=== PATIENT | male | born 1960 | race Caucasian/White ===

== ENCOUNTER 2021-06-24 07:16 | Outpatient (CLI) | payer MEDICAID, SELFPAY ==
[2021-06-24 08:03] LABS: Absolute Lymphocyte Count 2.45 X10^3/uL (0.83-4.51); Absolute Neutrophil Count 3.9 X10^3/uL (2.0-7.7); Basophil# 0.04 X10^3/uL; Basophil% 0.6 % (0-1); Eosinophils% 1.5 % (0-5); Hematocrit 45.4 % (40-54); Hemoglobin 15.5 g/dL (13.0-16.5); Lymphocyte # 2.45 X10^3/ul (0.83-4.51); Lymphocyte % 35.6 % (19-41); Mean Corp Hgb Conc 34.1 g/dL (32-36); Mean Corpuscular Hgb 31.6 pg (27.0-32.0); Mean Corpuscular Volume 92.5 fL (80-94); Mean Platelet Vol. 10.1 fl (6.2-12.0); Monocyte# 0.41 X10^3/uL; NRBC Flagged by Analyzer 0 % (0-5); Neutrophil # 3.86 X10^3/uL (2.7-7.7); Neutrophil % 55.9 % (47-70); Platelet Count 258 K/mm3 (150-450); RBC Distribution Width CV 12.5 % (11.6-14.6); RBC Distribution Width SD 42.7 fl (35.1-43.9); Red Blood Count 4.91 M/mm3 (4.6-6.2); White Blood Count 6.9 K/mm3 (4.4-11.0)
[2021-06-24 08:47] LABS: BUN 25 mg/dL (7-18); Creatinine, Serum 1.31 mg/dL (0.70-1.30); Glucose 117 mg/dL (74-106)
[2021-06-24 08:48] LABS: AST(SGOT) 32 U/L (15-37); Alanine Aminotransfer ALT/SGPT 47 U/L (16-61); Albumin, Serum 3.9 g/dL (3.2-5.0); Alkaline Phosphatase 57 U/L (45-117); Anion Gap 5 (5-15); BUN/Creat Ratio 19.1 RATIO (10-20); Calcium,Total 9.1 mg/dL (8.5-10.1); Chloride 107 mmol/L (98-107); Cholesterol 189 mg/dL (200); EST Glomerular Filtration Rate 59 mL/min (>60); Est Glom Filt Rate - Afr Amer 71 mL/min (>60); Globulin 3.9 g/dL (2.2-4.2); High Density Lipoprotein 34 mg/dL; PSA,Total - Annual Screen 3.32 ng/mL (0.00-4.00); Potassium 4.1 mmol/L (3.5-5.1); Protein, Total 7.8 g/dL (6.4-8.2); Sodium Level 140 mmol/L (136-145); Thyroid Stim Hormone (TSH) 2.71 uIU/mL (0.358-3.74); Triglycerides 195 mg/dL; Very Low Density Lipoprotein 39 mg/dL (5-40)
[2021-06-26 16:46] LABS: Vitamin D 1,25-Dihydroxy 53.1 pg/mL (19.9-79.3)
== END 2021-06-24 23:59 | disposition home or self-care (01) ==
LOC: LAB 07:19
DX: I10 Essential (primary) hypertension (principal); E55.9 Vitamin D deficiency, unspecified; Z12.5 Encounter for screening for malignant neoplasm of prostate
CPT/HCPCS: 36415; 80053; 80061; 82652; 84153; 84443; 85025; G0103

== ENCOUNTER 2021-08-11 15:54 | Outpatient (RCR) | payer MEDICAID, SELFPAY | END 2021-08-11 19:00 | disposition home or self-care (01) | LOC: PT 15:54 | PROVIDERS: PCP Internal Medicine; Referring Provider Physician Assistant; Visit Provider Physician Assistant | DX: M75.42 Impingement syndrome of left shoulder (principal); M19.012 Primary osteoarthritis, left shoulder ==

== ENCOUNTER → 2022-01-26 | Outpatient (CLI) | payer MEDICAID, SELFPAY ==
[2022-01-26 11:08] LABS: Anion Gap 5 (5-15); BUN 22 mg/dL (7-18); BUN/Creat Ratio 17.3 RATIO (10-20); Calcium,Total 9.7 mg/dL (8.5-10.1); Chloride 107 mmol/L (98-107); Creatinine, Serum 1.27 mg/dL (0.70-1.30); EST Glomerular Filtration Rate 61 mL/min (>60); Est Glom Filt Rate - Afr Amer 74 mL/min (>60); Glucose 100 mg/dL (74-106); Potassium 3.6 mmol/L (3.5-5.1); Sodium Level 143 mmol/L (136-145)
[2022-01-26 11:21] LABS: Hemoglobin A1c 6.1 % (3.8-5.6)
== END | disposition home or self-care (01) ==
LOC: LAB 10:20
PROVIDERS: PCP Internal Medicine; Referring Provider Internal Medicine; Visit Provider Internal Medicine
DX: I10 Essential (primary) hypertension (principal)
CPT/HCPCS: 36415; 80048; 83036

== ENCOUNTER → 2022-07-21 | Outpatient (CLI) | payer OTHER, SELFPAY ==
[2022-07-21 07:24] LABS: Absolute Lymphocyte Count 2.45 X10^3/uL (0.83-4.51); Absolute Neutrophil Count 4.3 X10^3/uL (2.0-7.7); Basophil# 0.04 X10^3/uL; Basophil% 0.5 % (0-1); Eosinophil# 0.11 X10^3/uL; Eosinophils% 1.5 % (0-5); Hematocrit 44.3 % (40-54); Hemoglobin 15.1 g/dL (13.0-16.5); Lymphocyte # 2.45 X10^3/ul (0.83-4.51); Lymphocyte % 33.1 % (19-41); Mean Corp Hgb Conc 34.1 g/dL (32-36); Mean Corpuscular Hgb 31.9 pg (27.0-32.0); Mean Corpuscular Volume 93.5 fL (80-94); Mean Platelet Vol. 10.2 fl (6.2-12.0); Monocyte# 0.49 X10^3/uL; Monocyte% 6.6 % (0-10); NRBC Flagged by Analyzer 0 % (0-5); Neutrophil # 4.28 X10^3/uL (2.7-7.7); Neutrophil % 57.9 % (47-70); Platelet Count 242 K/mm3 (150-450); RBC Distribution Width CV 12.7 % (11.6-14.6); RBC Distribution Width SD 43.8 fl (35.1-43.9); Red Blood Count 4.74 M/mm3 (4.6-6.2); White Blood Count 7.4 K/mm3 (4.4-11.0)
[2022-07-21 08:07] LABS: AST(SGOT) 28 U/L (15-37); Alanine Aminotransfer ALT/SGPT 48 U/L (16-61); Albumin, Serum 3.7 g/dL (3.2-5.0); Alkaline Phosphatase 56 U/L (45-117); Anion Gap 6 (5-15); BUN 26 mg/dL (7-18); BUN/Creat Ratio 20.8 RATIO (10-20); Calcium,Total 9.2 mg/dL (8.5-10.1); Chloride 110 mmol/L (98-107); Cholesterol 195 mg/dL (200); Creatinine, Serum 1.25 mg/dL (0.70-1.30); EST Glomerular Filtration Rate 62 mL/min (>60); Est Glom Filt Rate - Afr Amer 75 mL/min (>60); Globulin 3.6 g/dL (2.2-4.2); Glucose 122 mg/dL (74-106); High Density Lipoprotein 32 mg/dL; Potassium 3.8 mmol/L (3.5-5.1); Protein, Total 7.3 g/dL (6.4-8.2); Sodium Level 141 mmol/L (136-145); Triglycerides 211 mg/dL; Very Low Density Lipoprotein 42 mg/dL (5-40)
[2022-07-21 08:37] LABS: Vitamin D,25 Hydroxy 47.2 ng/mL
== END | disposition home or self-care (01) ==
PROVIDERS: PCP Internal Medicine; Referring Provider Internal Medicine; Visit Provider Internal Medicine
DX: Z00.00 Encounter for general adult medical examination without abnormal findings (principal); I10 Essential (primary) hypertension; Z12.5 Encounter for screening for malignant neoplasm of prostate; E55.9 Vitamin D deficiency, unspecified
CPT/HCPCS: 36415; 80053; 80061; 82306; 84153; 85025; G0103

== ENCOUNTER → 2023-01-25 | Outpatient (CLI) | payer OTHER, SELFPAY ==
[2023-01-25 10:53] LABS: Anion Gap 7 (5-15); BUN 20 mg/dL (7-18); BUN/Creat Ratio 16.7 RATIO (10-20); Calcium,Total 9.1 mg/dL (8.5-10.1); Chloride 107 mmol/L (98-107); EST Glomerular Filtration Rate 65 mL/min (>60); Est Glom Filt Rate - Afr Amer 79 mL/min (>60); Glucose 179 mg/dL (74-106); PSA,Total- Diagnostic 4.97 ng/mL (0.0-4.0); Potassium 3.8 mmol/L (3.5-5.1); Sodium Level 139 mmol/L (136-145)
== END | disposition home or self-care (01) ==
LOC: LAB 09:46
PROVIDERS: PCP Internal Medicine; Referring Provider Internal Medicine; Visit Provider Internal Medicine
DX: N40.0 Benign prostatic hyperplasia without lower urinary tract symptoms (principal); I10 Essential (primary) hypertension; R79.89 Other specified abnormal findings of blood chemistry
CPT/HCPCS: 36415; 80048; 84153

== ENCOUNTER 2023-02-19 06:52 | Day surgery (SDC) | payer OTHER, SELFPAY ==
[2023-02-19] VITALS (7 sets, daily range): BP systolic 97–133; BP diastolic 76–93; PULSE 72–92; RESP 16–18; TEMP 36.1–36.9; O2SAT 87–97; BMI 35.2
--- NOTE | 2023-02-19 07:08 | PCM.HP.STD ---
[facility] - General General Date of Admission: 01/02/20 Date of Service: 02/19/23 Chief Complaint: Family history of colon cancer in his mother HPI Narrative CHI TEIXEIRA, is a 62 M who presents for screening colonoscopy today. There is a family history of colon cancer in his mother. He presents via open access. He thinks that the MiraLAX prep did not quite work as well as previous preps. No abdominal pain. No bright red blood per rectum or melena. He has had some chronic cough but that is does not inhibit his breathing ability. [facility] Medical History (Updated 02/19/23 @ 07:[address] Tobi Rob MD) Alcohol use Arthritis Cancer Family hx of colon cancer History of diverticulitis Hypertension Injury of head and neck Kidney stones Non-smoker Skin cancer Wears glasses Home Medications losartan 50 mg tablet 50 mg PO DAILY #90 tabs 07/27/22 [Rx Last Taken Unknown] cholecalciferol (vitamin D3) 50 mcg (2,000 unit) capsule 50 mcg PO DAILY 01/06/23 [History Last Taken Unknown] multivitamin 1 tab PO DAILY 01/06/23 [History Last Taken Unknown] omega-3 fatty acids-fish oil 360 mg-1,200 mg capsule (Fish Oil) 1 cap PO DAILY 01/06/23 [History Last Taken Unknown] ascorbic acid (vitamin C) 500 mg tablet (C-500) 500 mg PO DAILY 02/15/23 [History Last Taken Unknown] Allergy/AdvReac Type Severity Reaction Status Date / Time morphine AdvReac Severe Nausea Verified 02/19/23 07:08 Family History Mother Colon cancer, Onset Age: 70 Survives Surgical History (Updated 02/15/23 @ 12:15 by Gayatri Gates) History of cystoscopy Hx of appendectomy Hx of colonoscopy Hx of hernia repair Hx of repair of right rotator cuff Social History Smoking Status: Never smoker alcohol intake: current alcohol intake frequency: a few times a week Alcohol type: beer substance use type: does not use what type of physical activity do you participate in: none ROS Constitutional Constitutional: Reports systems reviewed and no addt'l complaints, except as documented Cardiovascular Cardiovascular: Denies chest pain Respiratory/Chest Respiratory/Chest: Denies shortness of breath at rest Gastrointestinal Gastrointestinal: Denies abdominal pain, change in bowel habits, hematochezia or melena Physical Exam Const alert, oriented x3 and no apparent distress General Appearance: cooperative and comfortable Eyes General Eye: normal appearance of both eyes Neck General: normal visual inspection Chest inspection of chest normal Resp Effort and Inspection: able to speak in complete sentences and symmetric chest movement Auscultation: clear to auscultation bilaterally Cardio regular rate and regular rhythm GI soft to palpation, non-tender and non-distended Extremity no calf tenderness Neuro oriented x3 Psych thought process normal Assessment & Plan Assessment/Plan (1) Family hx of colon cancer: PLAN: I recommend to the patient a screening colonoscopy with possible biopsy or polypectomy as indicated. He is aware of the technique, benefit, risk, alternatives. Mother had history of colon cancer. Previous colonoscopy for the patient was 5 years ago. Fortunately he currently is symptom-free. He presents via open access today. Tobi Rob M.D., F.A.C.S.
[2023-02-19] MEDS: Lactated Ringers 1,000 ML 15 ML IV (07:51)
--- NOTE | 2023-02-19 08:00 | COLBX_PTH ---
PATIENT: CHI TEIXEIRA LOC: EN U#:[id number] AGE/SX: 62/M ROOM: RE02/19/[address]: Dr. Tobi Rob MD : 1960 BED: DIS: 02/19/2023 SPEC #: [id number] RECD: 02/19/23 11:21 STATUS: AFTAB FAROOQ #: [id number] IVY: 02/19/23 08:[address]: Tobi Rob DEPT: SURGICAL PATHOLOGY RECD BY: Precious Montero ENTERED: 02/19/23 11:48 SP TYPE: COLON BX OTHR DR: Dr. Lauren Paulino MD Tissues: Rectum, NOS Procedures: Surgery Specimen Level IV HEADER OPERATION: Colonoscopy - open access PRE-OP DIAGNOSIS: Family history of colon cancer TISSUE SUBMITTED: Rectal polyp biopsy MICROSCOPIC DIAGNOSIS Rectal polyp, biopsy: Hyperplastic polyp. SJ: 02/22/2023 MICROSCOPIC DESCRIPTION Slides are reviewed. GROSS DESCRIPTION Received in fixative is one container labeled with the patient's name and designated rectal polyp biopsy. The specimen consists of one irregular fragment of light valentine soft tissue that measures 0.3 x 0.3 x 0.1 cm. The specimen is totally submitted in one cassette. / SJ:rg 02/19/2023 TC:1 CPT: 32196
--- NOTE | 2023-02-19 08:50 | OP.CCLET_ITS ---
02/19/2023 Lauren Paulino [facility] [address] [place] [address] Re : Colonoscopy procedure for Cruzito Manzano Dear Dr. Paulino This procedure was performed on Sunday, February 19, 2023. My impressions and recommendations are as follows: Impressions : - Hemorrhoids found on perianal exam. - One 3 mm polyp in the rectum, removed with a cold biopsy forceps. Resected and retrieved. - Diverticulosis in the sigmoid colon. Recommendations : - Discharge patient to home. - Resume previous diet. - Continue present medications. - Repeat colonoscopy in 5 years for surveillance. - Telephone my office for pathology results in 1 week. My findings are described in the full procedure note, which is enclosed. If I can be of further assistance, please feel free to contact me at Doctor phone number(s): Work: . Sincerely, Tobi Rob MD 02/19/2023 8:49:42 AM This report has been signed electronically.
--- NOTE | 2023-02-19 08:50 | OP.COLON_ITS ---
Patient Name: Cruzito Manzano Procedure Date: 02/19/2023 8:20 AM Date of : 1960 Age: 62 Procedure: Colonoscopy Indications: Family history of colon cancer in a first-degree relative before age 60 years Providers: Tobi Rob MD Medicines: See the Anesthesia note for documentation of the administered medications Patient Profile: Last Colonoscopy: 5 years ago. Complications: No immediate complications. Procedure: Pre-Anesthesia Assessment: - Prior to the procedure, a History and Physical was performed, and patient medications and allergies were reviewed. The patient's tolerance of previous anesthesia was also reviewed. The risks and benefits of the procedure and the sedation options and risks were discussed with the patient. All questions were answered, and informed consent was obtained. Prior Anticoagulants: The patient has taken no anticoagulant or antiplatelet agents. ASA Grade Assessment: II - A patient with mild systemic disease. After reviewing the risks and benefits, the patient was deemed in satisfactory condition to undergo the procedure. After I obtained informed consent, the scope was passed under direct vision. Throughout the procedure, the patient's blood pressure, pulse, and oxygen saturations were monitored continuously. The colonoscope was introduced through the anus and advanced to the terminal ileum, with identification of the appendiceal orifice and IC valve. The colonoscopy was performed without difficulty. The patient tolerated the procedure well. The quality of the bowel preparation was good. The ileocecal valve and the appendiceal orifice were photographed. Scope In: 8:28:46 AM Scope Withdrawal Time 0 hours 9 minutes 23 seconds Scope Out: 8:44:46 AM Total Procedure Duration Time 0 hours 16 minutes 0 seconds Findings: Hemorrhoids were found on perianal exam. A 3 mm polyp was found in the rectum. The polyp was sessile. The polyp was removed with a cold biopsy forceps. Resection and retrieval were complete. Multiple diverticula were found in the sigmoid colon. Impression: - Hemorrhoids found on perianal exam. - One 3 mm polyp in the rectum, removed with a cold biopsy forceps. Resected and retrieved. - Diverticulosis in the sigmoid colon. Recommendation: - Discharge patient to home. - Resume previous diet. - Continue present medications. - Repeat colonoscopy in 5 years for surveillance. - Telephone my office for pathology results in 1 week. Procedure Code(s): --- Professional --- 83271, Colonoscopy, flexible; with biopsy, single or multiple Diagnosis Code(s): --- Professional --- K64.9, Unspecified hemorrhoids D12.8, Benign neoplasm of rectum Z80.0, Family history of malignant neoplasm of digestive organs K57.30, Diverticulosis of large intestine without perforation or abscess without bleeding CPT copyright 2021 [employer]. All rights reserved. The codes documented in this report are preliminary and upon glass selector review may be revised to meet current compliance requirements. Tobi Rob MD 02/19/2023 8:49:42 AM This report has been signed electronically. Number of Addenda: 0 Note Initiated On: 02/19/2023 8:20 AM
== END 2023-02-19 09:30 | disposition home or self-care (01) ==
LOC: EN 06:53 → AC 06:55
PROVIDERS: PCP Internal Medicine; Referring Provider Internal Medicine; Visit Provider Surgery
PROC: 0DJD8ZZ Inspection of Lower Intestinal Tract, Via Natural or Artificial Opening Endoscopic (ICD-10-PCS; CPT 45378; principal; 2023-02-19 07:55)
DX: Z12.11 Encounter for screening for malignant neoplasm of colon (principal); K57.30 Diverticulosis of large intestine without perforation or abscess without bleeding; I10 Essential (primary) hypertension; Z80.0 Family history of malignant neoplasm of digestive organs; K62.1 Rectal polyp; K64.4 Residual hemorrhoidal skin tags; Z79.899 Other long term (current) drug therapy; Z87.19 Personal history of other diseases of the digestive system
CPT/HCPCS: 45380; 88305; J7120; J2405

== ENCOUNTER → 2023-05-31 | Outpatient (CLI) | payer OTHER, SELFPAY ==
--- OUTSIDE RECORDS SUMMARY | 2023-05-31 07:32 | XMS RPT_ITS | CCD ---
Author Name Unknown Address [address] [place] [address] Organization [employer] Results Test Name Value Interpretation Reference Range Facil ity Progress note 11-29-2020 Note Date & Type Note Facility 11-29-2020 Note HNO ID: [id number] Author: Zaid Morales MD Service: ? Author Type: Physician Type: Progress Notes Filed: 12/05/2020 10:57 AM Note Text: Chief Complaint Patient presents with: Physical HPI Chi Manzano is a 59 year old male who presents here today for Above Complaints. and Chronic Medical Conditions.. Patient states that blood pressure, last taken in the spring varies. Patient did not bring blood pressure recordings. GERD is managed, patient reports that it is only aggrevated with spicy foods. Diet: Patient states he eats too much of good food, veggies, fruits, cereals, needs to reduce portion sizes. States he eats way too much. Patient does not normally put salt on food, uses ocassionally. Patient states he cooks with too much butter, and should switch to EVOO. He does all the cooking. Denies soda, caffeinated. Drinks a good amount of water-20 ounces 1 at work, and skim milk. Patient tolerating medications well with no side effects. Patient goes to bed at 7-8pm, wake up every morning at 4am. Patient gets up watches the news, then enjoys coffee at 6am with friends. Retired. 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 Patient feels rested after sleeping, and reports 8 hours of sleeping per night. Past medical history, appointments, medications, allergies reviewed. Previous Medical History PAST MEDICAL HISTORY Diagnosis Date - Diverticulitis of colon (without mention of hemorrhage)(562.11) - Elevated hemoglobin A1c 11/29/2020 - Elevated PSA 11/29/2020 - Essential hypertension, benign 03/01/2014 - GERD without esophagitis 09/02/2020 - Obesity, Class I, BMI 30-34.9 08/17/2017 Previous Surgical History PAST SURGICAL HISTORY Procedure Laterality Date - COLONOSCOP W/ OR W/O [facility] SPEC 02/14/07 - COLONOSCOP W/ OR W/O [facility] SPEC 02/21/2018 Colonoscopy - LAPAROSCOPY, SURGICAL, APPENDECTOMY 06-30-10 - REPAIR ING HERNIA,5+Y/O,REDUCIBL Hernia repair, inguinal - REPAIR ROTATOR CUFF,ACUTE Rotator cuff repair, right - REPAIR UMBILICAL STEPHEN,<5Y/O,REDUC Hernia repair, umbilical Family History FAMILY HISTORY Problem Relation Age of Onset - Coronary Artery Disease Father - Diabetes Father - Colon Cancer Mother - Coronary Artery Disease Paternal Grandfather - Diabetes Paternal Grandfather - Hypertension Paternal Grandfather - Diabetes Maternal Grandmother - Diabetes Paternal Grandmother Patient Allergies ALLERGIES Allergen Reactions - Hay Fever [Other] Unknown - Lisinopril Cough Current Medications Current Outpatient Medications on File Prior to Visit Medication Sig - omega-3 fatty acids (FISH OIL CONCENTRATE ORAL) Take by mouth. - calcium carbonate/vitamin D3 (CALCIUM 500 + D, D3, ORAL) Take by mouth. - biotin 1 mg cap Take by mouth. - ascorbic acid (VITAMIN C ORAL) Take by mouth. - melatonin 1 mg tablet Take by mouth. - losartan (COZAAR) 50 mg tablet Take 1 tablet by mouth once daily. For blood pressure - multivitamin tablet Take 1 tablet by mouth once daily. - Omeprazole Magnesium (PRILOSEC OTC) 20 mg tablet Take 1 tablet by mouth daily before breakfast. 1/2 hr before meal. No current facility-administered medications on file prior to visit. Social History Social History Tobacco Use - Smoking status: Never Smoker - Smokeless tobacco: Never Used Substance Use Topics - Alcohol use: Yes Comment: OCCASION - Drug use: No Review of Symptoms REVIEW OF SYSTEMS GENERAL: No weight loss, malaise or fevers HEENT: Negative for frequent or significant headaches, No changes in hearing or vision, no nose bleeds or other nasal problems NECK: Negative for lumps, goiter, pain and significant neck swelling RESPIRATORY: Negative for cough, hemoptysis, wheezing, dyspnea or shortness of breath CARDIOVASCULAR: Negative for chest pain, leg swelling, hypertension, palpitations GI: No nausea, vomiting, or diarrhea : No history of dysuria, frequency or incontinence MUSCULOSKELETAL: Negative for joint pain or swelling, back pain or muscle pain SKIN: Negative for lesions, rash, and itching PSYCH: Negative for sleep disturbance, mood disorder and recent psychosocial stressors, SEE HPI HEMATOLOGY/LYMPHOLOGY: Negative for prolonged bleeding, bruising easily or swollen nodes ENDOCRINE: Negative for cold or heat intolerance, polyuria, polydipsia and goiter NEURO: No history of headaches, syncope, paralysis, seizures or tremors EXAM: BP 122/80 Pulse 74 Resp 14 Ht 167.6 cm (5' 6 ) Wt 98 kg (216 lb) BMI 34.86 kg/m? General Appearance: Well appearing, alert, in no acute distress, well-hydrated, well nourished. Skin: Skin color, texture, turgor normal, no suspicious rashes or lesions. Head: Normocephalic, no masses, lesions, tenderness or abnormalities. Eyes: Anicteric sclera. Pupils are equally round and reactive to light. Extraocular movements are intact. Ears: External ears normal, canals clear. Neck (more content not included)... [facility] Progress note 11-29-2020 Note Date & Type Note Facility 11-29-2020 Note HNO ID: [id number] Author: Zaid Morales MD Service: ? Author Type: Physician Type: Progress Notes Filed: 12/05/2020 10:57 AM Note Text: Chief Complaint Patient presents with: Physical HPI Chi Manzano is a 59 year old male who presents here today for Above Complaints. and Chronic Medical Conditions.. Patient with Hx of HTN, GERD, elevated A1c, Obesity as well as those reviewed and addressed below and in ROS. Has been doing well. Knows diet is not the best. Past medical history, appointments, medications, allergies reviewed. Previous Medical History PAST MEDICAL HISTORY Diagnosis Date - Diverticulitis of colon (without mention of hemorrhage)(562.11) - Essential hypertension, benign 03/01/2014 - GERD without esophagitis 09/02/2020 - Obesity, Class I, BMI 30-34.9 08/17/2017 Previous Surgical History PAST SURGICAL HISTORY Procedure Laterality Date - COLONOSCOP W/ OR W/O [facility] SPEC 02/14/07 - COLONOSCOP W/ OR W/O [facility] SPEC 02/21/2018 Colonoscopy - LAPAROSCOPY, SURGICAL, APPENDECTOMY 06-30-10 - REPAIR ING HERNIA,5+Y/O,REDUCIBL Hernia repair, inguinal - REPAIR ROTATOR CUFF,ACUTE Rotator cuff repair, right - REPAIR UMBILICAL STEPHEN,<5Y/O,REDUC Hernia repair, umbilical Family History FAMILY HISTORY Problem Relation Age of Onset - Coronary Artery Disease Father - Diabetes Father - Colon Cancer Mother - Coronary Artery Disease Paternal Grandfather - Diabetes Paternal Grandfather - Hypertension Paternal Grandfather - Diabetes Maternal Grandmother - Diabetes Paternal Grandmother Patient Allergies ALLERGIES Allergen Reactions - Hay Fever [Other] Unknown - Lisinopril Cough Current Medications Current Outpatient Medications on File Prior to Visit Medication Sig - omega-3 fatty acids (FISH OIL CONCENTRATE ORAL) Take by mouth. - calcium carbonate/vitamin D3 (CALCIUM 500 + D, D3, ORAL) Take by mouth. - biotin 1 mg cap Take by mouth. - ascorbic acid (VITAMIN C ORAL) Take by mouth. - melatonin 1 mg tablet Take by mouth. - losartan (COZAAR) 50 mg tablet Take 1 tablet by mouth once daily. For blood pressure - multivitamin tablet Take 1 tablet by mouth once daily. - Omeprazole Magnesium (PRILOSEC OTC) 20 mg tablet Take 1 tablet by mouth daily before breakfast. 1/2 hr before meal. No current facility-administered medications on file prior to visit. Social History Social History Tobacco Use - Smoking status: Never Smoker - Smokeless tobacco: Never Used Substance Use Topics - Alcohol use: Yes Comment: OCCASION - Drug use: No Review of Symptoms REVIEW OF SYSTEMS As per MS 3 notes EXAM: BP 122/80 Pulse 74 Resp 14 Ht 167.6 cm (5' 6 ) Wt 98 kg (216 lb) BMI 34.86 kg/m? Last 4 Encounter Wt Readings: Date: Wt: 11/29/2020 98 kg (216 lb) 09/02/2020 97.2 kg (214 lb 3.2 oz) 11/07/2019 96.2 kg (212 lb) 06/02/2019 100.2 kg (221 lb) General Appearance: Well appearing, alert, in no acute distress, well-hydrated, well nourished.. Skin: Skin color, texture, turgor normal, no suspicious rashes or lesions. Eyes: Anicteric sclera. Pupils are equally round and reactive to light. Extraocular movements are intact. . Neck: Supple, no adenopathy; thyroid symmetric, normal size, no bruits. Lungs: Lungs clear to auscultation. No wheezing, rhonchi, rales.. Heart: RRR without murmur, gallop, or rubs. Has occasional premature beat. Extremities: No deformities, edema, skin discoloration. Musculoskeletal: Muscular strength intact, No joint swelling, deformity, or tenderness. Peripheral Pulses: Normal. Neurologic: Gait normal. Reflexes normal and symmetric. Sensation grossly intact.. Genitalia: Normal, Penis normal. No urethral discharge. Scrotum normal to palpation. No hernia.. Rectal: Deferred exam. Per patient request Health Maintenance List HIV SCREENING Never done INFLUENZA(1) due on 12/18/2020 ANNUAL PCP TEAM CHRONIC DISEASE VISIT due on 09/02/2021 BP CONTROLLED (<130/80) due on 09/02/2021 DEPRESSION SCREENING due on 09/02/2021 COLORECTAL CANCER SCREENING due on 02/21/2023 DIABETES SCREEN due on 11/28/2023 LIPID SCREEN due on 11/27/2025 PROSTATE CANCER SCREENING DISCUSSION due on 11/27/2025 DTAP,TDAP,TD(4 - Td or Tdap) due on 09/02/2030 HEPATITIS C SCREENING Completed SHINGRIX VACCINE Completed COVID-19 VACCINE Completed MENINGOCOCCAL CONJUGATE Aged Out Data reviewed Component Latest Ref Rng AND Units 08/13/2018 08/18/2018 07/21/2019 11/27/2020 Color Yellow Yellow Clarity Clear Clear Glucose, Urine Negative mg/dL Negative Bilirubin, Urine Negative Negative Ketones, Urine Negative Negative Specific [place], Ur 1.005 - 1.030 1.026 Hemoglobin/Blood,Ur Negative Negative pH, Urine 5.0 - 8.0 5.0 Protein, Urine Negative Negative Urobilinogen Negative E.U./dL Negative Nitrites Negative Negative Leukest Negative Negative Comment SEE COMMENT Urine Luigi Comment SEE COMMENT WBC, Urine 0 - 5 /HPF 0- (more content not included)... [facility] Progress note 09-02-2020 Note Date & Type Note Facility 09-02-2020 Note HNO ID: [id number] Author: Zaid Morales MD Service: ? Author Type: Physician Type: Progress Notes Filed: 09/02/2020 1:58 PM Note Text: Chief Complaint Patient presents with: Follow Up: transfer care Dr Rob, denied current concerns HPI Chi Manzano is a 59 year old male who presents here today for Above Complaints. and Chronic Medical Conditions.. Patient with Hx of HTN, GERD as well as those reviewed and addressed below and in ROS. Patient transferring care today due to the longterm of his previous PCP. May use his omeprazole once every few months. Past medical history, appointments, medications, allergies reviewed. Previous Medical History PAST MEDICAL HISTORY Diagnosis Date - Diverticulitis of colon (without mention of hemorrhage)(562.11) - Essential hypertension, benign 03/01/2014 - Obesity, Class I, BMI 30-34.9 08/17/2017 Previous Surgical History PAST SURGICAL HISTORY Procedure Laterality Date - COLONOSCOP W/ OR W/O [facility] SPEC 02/14/07 - COLONOSCOP W/ OR W/O [facility] SPEC 02/21/2018 Colonoscopy - LAPAROSCOPY, SURGICAL, APPENDECTOMY 06-30-10 - REPAIR ING HERNIA,5+Y/O,REDUCIBL Hernia repair, inguinal - REPAIR ROTATOR CUFF,ACUTE Rotator cuff repair, right - REPAIR UMBILICAL STEPHEN,<5Y/O,REDUC Hernia repair, umbilical Family History FAMILY HISTORY Problem Relation Age of Onset - Coronary Artery Disease Father - Diabetes Father - Colon Cancer Mother - Coronary Artery Disease Paternal Grandfather - Diabetes Paternal Grandfather - Hypertension Paternal Grandfather - Diabetes Maternal Grandmother - Diabetes Paternal Grandmother Patient Allergies ALLERGIES Allergen Reactions - Hay Fever [Other] - Lisinopril Cough Current Medications Current Outpatient Medications on File Prior to Visit Medication Sig - omega-3 fatty acids (FISH OIL CONCENTRATE ORAL) Take by mouth. - calcium carbonate/vitamin D3 (CALCIUM 500 + D, D3, ORAL) Take by mouth. - biotin 1 mg cap Take by mouth. - ascorbic acid (VITAMIN C ORAL) Take by mouth. - melatonin 1 mg tablet Take by mouth. - losartan (COZAAR) 50 mg tablet Take 1 tablet by mouth once daily. For blood pressure - multivitamin tablet Take 1 tablet by mouth once daily. - Omeprazole Magnesium (PRILOSEC OTC) 20 mg tablet Take 1 tablet by mouth daily before breakfast. 1/2 hr before meal. No current facility-administered medications on file prior to visit. Social History Social History Tobacco Use - Smoking status: Never Smoker - Smokeless tobacco: Never Used Substance Use Topics - Alcohol use: Yes Comment: OCCASION - Drug use: No Review of Symptoms REVIEW OF SYSTEMS GENERAL: No weight loss, malaise or fevers HEENT: Negative for frequent or significant headaches, No changes in hearing or vision, no nose bleeds or other nasal problems NECK: Negative for lumps, goiter, pain and significant neck swelling RESPIRATORY: Negative for cough, hemoptysis, wheezing, COPD, dyspnea or shortness of breath CARDIOVASCULAR: Negative for chest pain, leg swelling, hypertension, CHF or palpitations GI: No nausea, vomiting, or diarrhea, No heartburn or reflux symptoms and no blood : No history of dysuria, hesitancy or blood MUSCULOSKELETAL: Negative for joint pain or swelling, back pain or muscle pain SKIN: Negative for lesions, rash, and itching PSYCH: Negative for sleep disturbance, mood disorder and recent psychosocial stressors HEMATOLOGY/LYMPHOLOGY: Negative for prolonged bleeding, bruising easily or swollen nodes ENDOCRINE: Negative for cold or heat intolerance, polyuria, polydipsia and goiter NEURO: No history of headaches, syncope, paralysis, seizures or tremors EXAM: BP 138/78 (BP Site: Left Arm, BP Position: Sitting, BP Cuff Size: Extra Large Adult) Pulse 72 Resp 16 Wt 97.2 kg (214 lb 3.2 oz) BMI 35.37 kg/m? Last 5 Encounter Wt Readings: Date: Wt: 09/02/2020 97.2 kg (214 lb 3.2 oz) 11/07/2019 96.2 kg (212 lb) 06/02/2019 100.2 kg (221 lb) 08/18/2018 96.2 kg (212 lb) 12/01/2017 92.5 kg (204 lb) General Appearance: Well appearing, alert, in no acute distress, well-hydrated, well nourished.. Skin: Skin color, texture, turgor normal, no suspicious rashes or lesions. Head: Normocephalic, no masses, lesions, tenderness or abnormalities. Eyes: Anicteric sclera. Pupils are equally round and reactive to light. Extraocular movements are intact. . Lungs: Lungs clear to auscultation. No wheezing, rhonchi, rales.. Heart: RRR without murmur, gallop, or rubs. No ectopy. Abdomen: Normal abdominal exam, Abdomen soft, non-tender. Bowel sounds normal. No masses, organomegaly. Extremities: No deformities, edema, skin discoloration, Health Maintenance List BP CONTROLLED (<130/80) Never done DTAP,TDAP,TD(3 - Td or Tdap) due on 12/18/2019 HIV SCREENING due on 11/06/2020 ANNUAL PCP TEAM CHRONIC DISEASE VISIT due on 11/06/2020 DEPRESSION SCREENING due on 09/02/2021 (more content not included)... [facility] Summary Purpose Family History No Family History Records Found Advance Directives No Advanced Directives Records Found Additional Source Comments (unrecognized sect ion and content) No Status Records Found INFORMATION SOURCE (unrecogn ized section and content) FOR RECORDS PERTAINING TO PATIENTS WHO ARE OR HAVE BEEN ENROLLED IN A CHEMICAL DEPENDENCY/SUBSTANCEABUSE PROGRAM, SOME INFORMATION MAY BE OMITTED. This clinical summary was aggregated from multiple sources. Caution should be exercised in using it in the provision of clinical care. This summary normalizes information from multiple sources, and as a consequence, information in this document may materially change the coding, format and clinical context of patient data. In addition, data may be omitted in some cases. CLINICAL DECISIONS SHOULD BE BASED ON THE PRIMARY CLINICAL RECORDS. [employer] provides no warranty or guarantee of the accuracy or completeness of information in this document.
[2023-05-31 10:11] LABS: PSA,Total- Diagnostic 4.35 ng/mL (0.0-4.0)
== END | disposition home or self-care (01) ==
PROVIDERS: PCP Internal Medicine
DX: C61 Malignant neoplasm of prostate (principal)
CPT/HCPCS: 36415; 84153

== ENCOUNTER → 2023-08-27 | Outpatient (CLI) | payer OTHER, SELFPAY ==
[2023-08-27 08:59] LABS: PSA,Total- Diagnostic 3.79 ng/mL (0.0-4.0)
== END | disposition home or self-care (01) ==
LOC: LAB 07:26
PROVIDERS: PCP Internal Medicine
DX: C61 Malignant neoplasm of prostate (principal)
CPT/HCPCS: 36415; 84153

== ENCOUNTER → 2023-11-23 | Outpatient (CLI) | payer OTHER, SELFPAY ==
[2023-11-23 09:54] LABS: PSA,Total- Diagnostic 4.04 ng/mL (0.0-4.0)
== END | disposition home or self-care (01) ==
LOC: LAB 07:58
PROVIDERS: PCP Internal Medicine
DX: C61 Malignant neoplasm of prostate (principal)
CPT/HCPCS: 36415; 84153

== ENCOUNTER → 2024-03-06 | Outpatient (CLI) | payer OTHER, SELFPAY ==
[2024-03-06 07:45] LABS: Absolute Lymphocyte Count 2.29 X10^3/uL (0.83-4.51); Absolute Neutrophil Count 4.8 X10^3/uL (2.0-7.7); Basophil# 0.04 X10^3/uL; Basophil% 0.5 % (0-1); Eosinophil# 0.07 X10^3/uL; Eosinophils% 0.9 % (0-5); Hemoglobin 14.3 g/dL (13.0-16.5); Lymphocyte # 2.29 X10^3/ul (0.83-4.51); Lymphocyte % 29.4 % (19-41); Mean Platelet Vol. 9.6 fl (6.2-12.0); Monocyte# 0.55 X10^3/uL; Monocyte% 7.1 % (0-10); NRBC Flagged by Analyzer 0 % (0-5); Neutrophil % 61.6 % (47-70); Platelet Count 300 K/mm3 (150-450); RBC Distribution Width CV 12.6 % (11.6-14.6); RBC Distribution Width SD 43.3 fl (35.1-43.9); Red Blood Count 4.47 M/mm3 (4.6-6.2); White Blood Count 7.8 K/mm3 (4.4-11.0)
[2024-03-06 08:07] LABS: ALB/GLOB Ratio 1.1 RATIO (0.9-2.4); AST(SGOT) 25 U/L (15-37); Alanine Aminotransfer ALT/SGPT 49 U/L (16-61); Albumin, Serum 3.6 g/dL (3.2-5.0); Alkaline Phosphatase 62 U/L (45-117); Anion Gap 5 (5-15); BUN 18 mg/dL (7-18); BUN/Creat Ratio 14.2 RATIO (10-20); Chloride 108 mmol/L (98-107); Cholesterol 175 mg/dL (200); Creatinine, Serum 1.27 mg/dL (0.70-1.30); EST Glomerular Filtration Rate 61 mL/min (>60); Est Glom Filt Rate - Afr Amer 73 mL/min (>60); Globulin 3.4 g/dL (2.2-4.2); Glucose 114 mg/dL (74-106); High Density Lipoprotein 38 mg/dL; Magnesium 2.2 mg/dL (1.6-2.6); PSA,Total- Diagnostic 4.09 ng/mL (0.0-4.0); Potassium 4.3 mmol/L (3.5-5.1); Sodium Level 141 mmol/L (136-145); Triglycerides 222 mg/dL; Very Low Density Lipoprotein 44 mg/dL (5-40)
[2024-03-06 08:11] LABS: Vitamin B12 576 pg/mL (211-911); Vitamin D,25 Hydroxy 51.3 ng/mL
== END | disposition home or self-care (01) ==
PROVIDERS: PCP Internal Medicine; Referring Provider Internal Medicine; Visit Provider Internal Medicine
DX: Z00.00 Encounter for general adult medical examination without abnormal findings (principal); C61 Malignant neoplasm of prostate; I10 Essential (primary) hypertension; E55.9 Vitamin D deficiency, unspecified; E53.8 Deficiency of other specified B group vitamins; N40.0 Benign prostatic hyperplasia without lower urinary tract symptoms; R97.20 Elevated prostate specific antigen [PSA]; M19.90 Unspecified osteoarthritis, unspecified site; Z79.01 Long term (current) use of anticoagulants; Z80.0 Family history of malignant neoplasm of digestive organs
CPT/HCPCS: 36415; 80053; 80061; 82306; 82607; 83735; 84153; 84443; 85025

== ENCOUNTER → 2024-05-26 | Outpatient (CLI) | payer OTHER, SELFPAY ==
[2024-05-26 08:15] LABS: PSA,Total- Diagnostic 5.13 ng/mL (0.0-4.0)
== END | disposition home or self-care (01) ==
LOC: LAB 07:10
PROVIDERS: PCP Internal Medicine
DX: C61 Malignant neoplasm of prostate (principal)
CPT/HCPCS: 36415; 84153

== ENCOUNTER → 2024-06-26 | Outpatient (CLI) | payer OTHER, SELFPAY ==
--- NOTE | 2024-06-26 10:55 | RAD_ITS ---
PROCEDURE: KNEE 4 OR MORE VIEWS (RADKN), 06/26/2024 REASON FOR EXAM: Right knee pain TECHNIQUE: AP, lateral, AP tunnel, and sunrise views of the right knee were obtained. COMPARISON: None FINDINGS: Fracture/dislocation: None visible. Joint space(s): Relatively preserved. Soft tissues: Soft tissue calcifications along the distal aspect of the posteromedial thigh Foreign bodies: None visible. Bone mineralization: Unremarkable. RAD/Knee 4 or More Views IMPRESSION: 1. No visible acute abnormality or significant degenerative changes evident rad iographically. 2. Additional description as above. Reading Location: [id number]
== END | disposition home or self-care (01) ==
LOC: RAD 10:48
PROVIDERS: PCP Internal Medicine; Referring Provider Internal Medicine; Visit Provider Internal Medicine
DX: M25.561 Pain in right knee (principal)
CPT/HCPCS: 73564

== ENCOUNTER → 2024-08-21 | Outpatient (CLI) | payer OTHER, SELFPAY ==
[2024-08-21 10:15] LABS: PSA,Total - Annual Screen 3.99 ng/mL (0.02-4.00)
== END | disposition home or self-care (01) ==
LOC: LAB 06:44
PROVIDERS: PCP Internal Medicine
DX: C61 Malignant neoplasm of prostate (principal)
CPT/HCPCS: 36415; 84153; G0103

== ENCOUNTER → 2024-11-17 | Outpatient (CLI) | payer MEDICARE, OTHER, SELFPAY ==
[2024-11-17 09:09] LABS: PSA,Total- Diagnostic 3.49 ng/mL (0.00-4.00)
== END | disposition home or self-care (01) ==
PROVIDERS: PCP Internal Medicine
DX: C61 Malignant neoplasm of prostate (principal)
CPT/HCPCS: 36415; 84153

== ENCOUNTER → 2025-03-12 | Outpatient (CLI) | payer MEDICARE, OTHER, SELFPAY ==
[2025-03-12 11:31] LABS: PSA,Total- Diagnostic 3.73 ng/mL (0.00-4.00)
== END | disposition home or self-care (01) ==
PROVIDERS: PCP Internal Medicine
DX: C61 Malignant neoplasm of prostate (principal)
CPT/HCPCS: 36415; 84153

== ENCOUNTER → 2025-04-10 | Outpatient (CLI) | payer MEDICARE, OTHER, SELFPAY ==
--- OUTSIDE RECORDS SUMMARY | 2025-04-10 06:49 | XMS RPT_ITS | CCD ---
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 Lauren Paulino Primary Care Provider Dr. Lauren Paulino Attending Provider Dr. Lauren Paulino Primary Care Provider Jeal Walter Attending Provider Unavailable Dr. Lauren Paulino Attending Provider Dr. Lauren Paulino Primary Care Provider Dr. Lauren Paulino Referring Provider Dr. Vanna Rob Attending Provider Dr. Vanna Rob Other Provider Dr. Lauren Paulino MD Primary Care Provider Dr. Lauren Paulino MD Attending Provider Dr. Lauren Paulino MD Referring Provider DAVION VALDERRAMA Other Provider DAVION VALDERRAMA Attending Provider DAVION VALDERRAMA Referring Provider Dr. Lauren Paulino MD Primary Care Provider Dr. Lauren Paulino MD Attending Provider Dr. Lauren Paulino MD Referring Provider Dr. Lauren Paulino MD Primary Care Provider DAVION VALDERRAMA Attending Provider DAVION VALDERRAMA Referring Provider CODY KEENE Attending Provider CODY KEENE Referring Provider vanna PEGUERO Attending Unavailable vanna PEGUERO Referring Unavailable Lauren Paulino Primary Care Unavailable vanna PEGUERO Consulting Unavailable Lauren Paulino Attending Unavailable Lauren Paulino Referring Unavailable Lora, Lauren Primary Care Unavailable vanna PEGUERO Attending Unavailable vanna PEGUERO Referring Unavailable Lauren Paulino Primary Care Unavailable vanna PEGUERO Attending Unavailable vanna PEGUERO Referring Unavailable Lauren Paulino Primary Care Unavailable Lauren Paulino Attending Unavailable Lauren Paulino Primary Care Unavailable Lauren Paulino Primary Care Unavailable Lauren Paulino Attending Unavailable Lauren Paulino Attending Unavailable Lauren Paulino Referring Unavailable Lauren Paulino Primary Care Unavailable Allergies Allergy Classification Reported Allergen(s) Allergy Type Date of Onset Reaction(s) Facility (7 sources) Morphine Drug Allergy 01-26-2022 Nausea [facility] Comment on above: I get severely ill (1 source) Morphine Drug Allergy 06-26-2024 [facility] Repository Medications Current Medications Medication Drug Class(es) Dates Sig (Normalized) Sig (Original) ascorbic acid 500 mg oral tablet (11 sources) Vitamin C Start: 02-15-2023 take 1 tablet by mouth once daily Ascorbic Acid (Vitamin C) (C-500) 500 mg tablet Active 500 mg PO DAILY February 15, 2023 12:00am Start: 01-26-2022 End: 01-06-2023 vitamin C Discontinued PO.IV FORM January 25, 2022 11:00pm January 06, 2023 10:07am Start: 01-26-2022 End: 01-06-2023 vitamin C Discontinued PO.IV FORM January 26, 2022 12:00am January 06, 2023 11:07am Start: 01-26-2022 vitamin C Acti ve PO.IVFORM January 26, 2022 12:00am Start: 01-26-2022 vitamin C Acti ve PO.IVFORM January 25, 2022 11:00pm cholecalciferol 0.05 mg oral capsule (5 sources) Vitamin D Start: 01-06-2023 take 1 capsule by mouth once daily Cholecalciferol (Vitamin D3) 50 mcg (2,000 unit) capsule Active 50 ug PO DAILY January 06, 2023 12:00am docosahexaenoic acid 144 mg / eicosapentaenoic acid 216 mg / vitamin e 2 unt oral capsule (5 sources) Start: 01-06-2023 [place]-3 Fatty Acids-Fish Oil (Fish Oil) 360-1,200 mg capsule Active 1 NMA PO DAILY January 06, 2023 12:00am losartan potassium 50 mg oral tablet (20 sources) Angiotensin 2 Receptor Sheri Start: 07-22-2021 End: 08-28-2024 take 1 tablet by mouth once daily Losartan 50 mg tablet Active 50 mg PO DAILY August 28, 2024 11:48am Multivitamin preparation (2 sources) Start: 01-06-2023 take 1 tablet by mouth once daily Multivitamin Active 1 TABLET PO DAILY January 05, 2023 11:00pm Start: 01-06-2023 take 1 tablet by chepe th once daily Multivitamin Active 1 TABLET PO DAILY January 06, 2023 12:00am Multivitamin tablet (3 sources) Start: 01-06-2023 Multivitamin t ablet Active 1 {tbl} PO DAILY January 06, 2023 12:00am Completed/Discontinued Medications Medication Drug Class(es) Dates Sig (Normalized) Sig (Original) acetaminophen 325 mg / oxyCODONE hydrochloride 5 mg oral tablet (14 sources) Opioid Agonist Start: 01-24-2013 End: 07-22-2021 Oxycodone-Acetamino phen 1 TABLET tablet Discontinued 1 - 2 {tbl} PO EVERY 4 HOURS NEEDED as needed for Pain January 25, 2013 12:00am July 22, 2021 2:57pm Start: 01-24-2013 End: 07-22-2021 take 1 tablet by mouth every four hours as needed Oxycodone-Acetaminophen Discontinued 1 - 2 TABLET PO EVERY 4 HOURS NEEDED January 24, 2013 11:00pm July 22, 2021 1:57pm Biotin (7 sources) Start: 01-26-2022 End: 01-06-2023 biotin Discontinued PO Octob er 2021 11:00pm January 06, 2023 10:06am Start: 01-26-2022 End: 01-06-2023 biotin Discontinued PO Octob er 2021 12:00am January 06, 2023 11:06am Start: 01-26-2022 biotin Active PO January 26, 2022 12:00am Start: 01-26-2022 biotin Active PO January 25, 2022 11:00pm Calcium (7 sources) Phosphate Binder, Calcium Start: 01-26-2022 End: 01-06-2023 calcium Discontinued PO January 25, 2022 11:00pm January 06, 2023 10:06am Start: 01-26-2022 End: 01-06-2023 calcium Discontinued PO 2021 12:00am January 06, 2023 11:06am Start: 01-26-2022 calcium Active PO January 26, 2022 12:00am Start: 01-26-2022 calcium Active PO January 25, 2022 11:00pm ciprofloxacin 500 mg oral tablet (14 sources) Quinolone Antimicrobial Start: 01-24-2013 End: 07-22-2021 take 1 tablet by mouth twice daily Ciprofloxacin Hcl 500 MG tablet Discontinued 500 mg PO TWICE A DAY 6 0 January 25, 2013 12:00am July 22, 2021 2:57pm codeine phosphate 2 mg/ml / guaiFENesin 20 mg/ml oral solution (3 sources) Opioid Agonist Start: 02-23-2024 End: 06-26-2024 take 1 mL by mouth every four to six hours as needed Codeine-Guaifenesi n 10-100 mg/5 mL liquid Discontinued 5 mL PO EVERY 4-6 HOURS as needed for cold symptoms 120 0 February 23, 2024 1:00am June 26, 2024 10:00am docusate sodium 100 mg oral capsule (7 sources) Start: 01-24-2013 End: 07-22-2021 take 1 capsule by mouth twice daily Docusate Sodium (Colace) 100 MG capsule Discontinued 100 mg PO TWICE A DAY January 24, 2013 12:00am July 22, 2021 2:57pm Fish Oils (7 sources) Start: 01-26-2022 End: 01-06-2023 fishoil Discontinued PO January 25, 2022 11:00pm January 06, 2023 10:07am Start: 01-26-2022 End: 01-06-2023 fishoil Discontinued PO 2021 12:00am January 06, 2023 11:07am Start: 01-26-2022 fishoil Active PO January 26, 2022 12:00am Start: 01-26-2022 fishoil Active PO January 25, 2022 11:00pm Magnesium (7 sources) Start: 01-26-2022 End: 01-06-2023 magnesium Discontinued PO Oc 2021 11:00pm January 06, 2023 10:07am Start: 01-26-2022 End: 01-06-2023 magnesium Discontinued PO Oc tober 2021 12:00am January 06, 2023 11:07am Start: 01-26-2022 magnesium Acti ve PO January 26, 2022 12:00am Start: 01-26-2022 magnesium Acti ve PO January 25, 2022 11:00pm meloxicam 15 mg oral tablet (7 sources) Nonsteroidal Anti-inflammatory Drug Start: 08-01-2021 End: 01-26-2022 take 1 tablet by mouth once daily Meloxicam 15 mg tablet Discontinued 15 mg PO DAILY 30 0 August 01, 2021 12:00am January 26, 2022 9:26am phenazopyridine hydrochloride 100 mg oral tablet (7 sources) Start: 01-24-2013 End: 07-22-2021 take 1 tablet by mouth once daily Phenazopyridine 100 MG tablet Discontinued 100 mg PO DAILY January 24, 2013 12:00am July 22, 2021 2:57pm tamsulosin hydrochloride 0.4 mg oral capsule (7 sources) alpha-Adrenergic Sheri Start: 01-24-2013 End: 07-22-2021 take 1 capsule by mouth once daily Tamsulosin 0.4 MG capsule Discontinued 0.4 mg PO DAILY January 24, 2013 12:00am July 22, 2021 2:57pm vit E (7 sources) Start: 01-26-2022 End: 01-06-2023 vit E Discontinued PO January 25, 2022 11:00pm January 06, 2023 10:07am Start: 01-26-2022 End: 01-06-2023 vit E Discontinued PO Octobe r 2021 12:00am January 06, 2023 11:07am Start: 01-26-2022 vit E Active P O January 26, 2022 12:00am Start: 01-26-2022 vit E Active P O January 25, 2022 11:00pm vitamin d3 (7 sources) Start: 01-26-2022 End: 01-06-2023 vitamin d3 Discontinued PO O ctober 2021 11:00pm January 06, 2023 10:08am Start: 01-26-2022 End: 01-06-2023 vitamin d3 Discontinued PO O ctober 2021 12:00am January 06, 2023 11:08am Start: 01-26-2022 vitamin d3 Act porfirio PO January 26, 2022 12:00am Start: 01-26-2022 vitamin d3 Act porfirio PO January 25, 2022 11:00pm Problems Active Problems Problem Classification Problem Date Documented Da te Episodic/Chronic Cancer of prostate (4 sources) Malignant tumor of prostate; Translations: [Malignant neoplasm of prostate] Onset: 12-08-2024 02-23-2024 Chronic Comment on above: Following with [facility] urology, Dr. Nguyen. Active surveillance. Essential hypertension (11 sources) Hypertensive disorder; Translations: [Essential (primary) hypertension] Onset: 02-23-2024 Chronic Comment on above: CONTROLLED ON MED Osteoarthritis (7 sources) Osteoarthritis; Translations: [Unspecified osteoarthritis, unspecified site] Onset: 02-23-2024 01-25-2023 Chronic Other connective tissue disease (7 sources) Impingement syndrome of shoulder region; Translations: [Impingement syndrome of left shoulder] 08-01-2021 Episodic Other non-traumatic joint disorders (7 sources) Shoulder pain; Translations: [Pain in unspecified shoulder] 08-01-2021 Episodic Other non-traumatic joint disorders (1 source) Pain in unspecified shoulder; Translations: [Pain in joint, shoulder region] 07-27-2022 Episodic Other upper respiratory infections (15 sources) Acute upper respiratory infection; Translations: [Acute upper respiratory infection, unspecified] 03-03-2021 Episodic Residual codes; unclassified (4 sources) Family history of cancer of colon; Translations: [Family history of malignant neoplasm of digestive organs] 02-19-2023 Episodic Sprains and strains (7 sources) Glenoid labrum tear; Translations: [Superior glenoid labrum lesion of unspecified shoulder, initial encounter] 07-22-2021 Episodic Past or Other Problems Problem Classification Problem Date Documented Date Episodic/Chronic Other non-traumatic joint disorders (6 sources) Pain in right knee; Translations: [Right knee pain] Onset: 07-04-2024 06-26-2024 Episodic Other screening for suspected conditions (not mental disorders or infectious disease) (20 sources) Raised prostate specific antigen; Translations: [Elevated prostate specific antigen [PSA]] Onset: 02-23-2024 Episodic Residual codes; unclassified (2 sources) Family history of malignant neoplasm of digestive organs; Translations: [Family history of malignant neoplasm of gastrointestinal tract] Onset: 02-23-2024 02-19-2023 Episodic Results Test Name Value Interpretation Reference Range Facility PSA,Total- Diagnosticon 08-0 PSA, DIAGNOSTIC 3.49 ng/mL Normal 0.00-4.00 [facility] Comment on above: Result Comment: This test was performed using the [employer] tPSA method. Measured values of a patient??sample can vary depending on the testing procedure used. PSA values determined on patient samples by different testing procedures cannot be used interchangeably. If there is a change in PSA assays while monitoring therapy, sequential testing should be performed to confirm baseline values. Performed By: #### L [id number] #### [facility] [address] [place], [address] PSA,Total - Annual Screenon 08-21-2024 PSA,TOT SCREEN 3.99 ng/mL Normal 0.02-4.00 [facility] Comment on above: Result Comment: This test was performed using the [employer] tPSA method. Measured values of a patient??sample can vary depending on the testing procedure used. PSA values determined on patient samples by different testing procedures cannot be used interchangeably. If there is a change in PSA assays while monitoring therapy, sequential testing should be performed to confirm baseline values. Performed By: #### L [id number] ####[facility] [id number] [place], [address] Knee 4 or More Viewson 06-26 Knee 4 or More Views [facility] [address] [place] [address] Knee 4 or More Views MR#: [id number] Acct: [id number] Name: CHI MANZANO Rep #: [id number] : 1960 M 63 From: Rah Bolaños MD PCP: Dr. Lauren Paulino MD Status: REG CLI Study: Knee 4 or More Views Date of Exam: 06/26/24 Exam# [id number] Ordering Dr: Lauren Paulino MD PROCEDURE: KNEE 4 OR MORE VIEWS (RADKN), 06/26/2024 REASON FOR EXAM: Right knee pain TECHNIQUE: AP, lateral, AP tunnel, and sunrise views of the right knee were obtained. COMPARISON: None FINDINGS: Fracture/dislocation: None visible. Joint space(s): Relatively preserved. Soft tissues: Soft tissue calcifications along the distal aspect of the posteromedial thigh Foreign bodies: None visible. Bone mineralization: Unremarkable. RAD/Knee 4 or More Views IMPRESSION: 1. No visible acute abnormality or significant degenerative changes evident radiographically. 2. Additional description as above. Reading Location: [facility] CC: Dr. Lauren Paulino MD Medical Superintendent: Signed Normal [facility] MR/BMS.IMBon 06-26-2024 MR/BMS.IMB [facility] [address] [place] [address] OFFICE VISIT Date of Service: 06/26/24 MR#: [id number] Acct: [id number] Name: CHI MANZANO Rep #: [id number] : 1960 Provider: Dr. Lauren turner MD Age/Sex: 63/M Location: [facility] Status: Signed Intake Vital Signs 02/23/24 08:54 06/26/24 10:02 Height 5 ft 5 in 5 ft 5 in Weight: 216 lb 4 oz 230 lb BMI 35.9 38.2 BP 149/93 H 158/90 H Blood Pressure Location Lt brachial Lt brachial Position Sitting Sitting Respiration 16 16 Pulse 88 75 Pulse Source Monitor Monitor Temp 98.0 F 98.2 F Temp Source Temporal Temporal Pulse Oximetry (%) 91 92 Oxygen Delivery Method room air room air Intake Visit Reasons: Rt Knee Pain Chief Complaint: Rt knee pain Social Services Manager Required: No Accompanied by: Self Is patient in pain?: No Allergies morphine Adverse Reaction (Severe, Verified 06/26/24 09:55) Nausea Medications ???Medication ???Instructions ???Recorded ???Confirmed ???Type cholecalciferol (vitamin D3) 50 50 mcg PO DAILY 01/06/23 06/26/24 History mcg (2,000 unit) capsule multivitamin 1 tab PO DAILY 01/06/23 06/26/24 H istory omega-3 fatty acids-fish oil 360 1 cap PO DAILY 01/06/23 06/26/24 H istory mg-1,200 mg capsule (Fish Oil) ascorbic acid (vitamin C) 500 mg 500 mg PO DAILY 02/15/23 06/26/24 History tablet (C-500) losartan 50 mg tablet 50 mg PO DAILY #90 tabs 08/19/23 0 06/26/24 Rx PFSH Medical History (Updated 06/26/24 @ 10:[address] Lauren Paulino MD) Right knee pain Prostate cancer Wears glasses Cancer Alcohol use Arthritis Injury of head and neck History of diverticulitis Non-smoker Family hx of colon cancer Skin cancer Kidney stones Hypertension Surgical History Hx of repair of right rotator cuff Hx of hernia repair Hx of appendectomy History of cystoscopy Hx of colonoscopy Family History Mother Colon cancer, Onset Age: 70 Survives Social History Smoking Status: Never smoker alcohol intake: current alcohol intake frequency: a few times a week Alcohol type: beer substance use type: does not use what type of physical activity do you participate in: none HPI HPI Chief Complaint: Rt knee pain Details: CHI MANZANO, is a 63 M who presents to the office today for an acute care follow-up visit. He has been having right knee pain. He is described this perhaps over the last month or so. When there was a snow recently about a month ago, he recalls he did put his brace on as he was having some discomfort at that point so at least was perhaps a month or more. No acute trauma. Does have arthritis in other joints, particularly in the shoulder. He has noted a sense of overall weakness, some stiffness and more painful going up and down stairs. He has not had any locking, swelling of the knee itself. No redness or inflammation around the knee. No prior knee surgeries, no prior injections in the knees. Remotely had an ACL injury. He was given option for surgical intervention but declined and ultimately things seem to heal reasonably. Review of systems per chart. Physical exam. Vital signs on chart. My exam is focused. There is no swelling about the right knee. No erythema, or evidence of infectious process about the right knee. There is no significant joint line tenderness medially or laterally. ACL, PCL, LCL and MCL are stable right knee. But the knee and flexion, and medial lateral compartment stress with extension, no flexion, clicking, locking. There is some mild crepitus behind the kneecap particularly at hyperflexion, that may be more consistent with chondromalacia patella. ROS Const Constitutional: No body ache, chills, excessive sweating, fatigue, fever(s), frequent falls, headache(s), snoring or change in appetite Eyes Eyes: No blurry vision, change in vision, eye pain or Light sensitivity ENT ENT: No abnormal hearing, ear or mastoid pain, tinnitus, nasal congestion, headache(s), neck pain or sore throat Resp Respiratory: No cough, shortness of breath, snoring or wheezing Cardio Cardiology: No chest pain at rest, chest pain with exertion, excessive sweating, dyspnea on exertion, lightheadedness, orthopnea or palpitations Gastro GI: No abdominal pain, change in bowel habits, constipation, cramping, diarrhea, nausea/dyspepsia or vomiting Genitourinary Male: No burning urination, painful urination, urinary incontinence or urinary frequency Musc Musculoskeletal: Positive for abnormal gait (Going up stairs ), muscle weakness, stiffness and other (Right knee pain ); No joint pain, back pain, limited range of mot (more content not included)... Normal [facility] Diagnostic total prostate sp ecific antigen (PSA) measurementon 05-26-2024 Prostate Specific Antigen Total 5.13 ng/mL High 0.0-4.0 [facility] Comment on above: This test was perfor med using the TPSA assay method for [employer] system. Values obtained with differentassay methods cannot be used interchangably.When changing PSA assays in the course of monitoring apatient, additional sequential testing should be carriedout to confirm baseline values. PSA,Total- Diagnosticon 02-0 PSA, DIAGNOSTIC 5.13 ng/mL High 0.0-4.0 [facility] Comment on above: Order Comment: ZAINA CUTLER GISELE Result Comment: This test was performed using the TPSA assay method for the [employer] chemistry system. Values obtained with different assay methods cannot be used interchangably. When changing PSA assays in the course of monitoring a patient, additional sequential testing should be carried out to confirm baseline values. Performed By: #### L [id number] #### [facility] [address] [place] [place], [place], [address] [id number] DOrdered By: Amanda Paulino on 03-06-2024 Vitamin D 25-Hydroxy 51.3 ng/mL [facility] Comment on above: Vitamin D 25(OH) Sta tus Range Deficiency <20 ng/mL (50nmol/L) Insufficiency 20 - 30 ng/mL (50 - 75 nmol/L) Sufficiency 30 - 100 ng/mL (75 - 250 nmol/L) Toxicity >100 ng/mL (>250 nmol/L) Absolute neutrophil countOrd ered By: Lauren Paulino on 03-06-2024 Neutrophils (Bld) [#/Vol] 4.8 10*3/uL 2.0-7.7 [facility] Albumin to globulin ratioOrd ered By: Lauren Paulino on 03-06-2024 Albumin/Globulin [Mass ratio] 1.1 {ratio} 0.9-2.4 [facility] Basophil percentageOrdered B y: Lauren Paulino on 03-06-2024 Basophils/100 WBC (Bld) 0.5 % 0-1 [facility] Bilirubin, totalOrdered By: Lauren Paulino on 03-06-2024 Bilirubin [Mass/Vol] 0.40 mg/dL 0.20-1.00 [facility] Comment on above: For patients on eltr ombopag therapy, use of Dimension [place] TBIL is not recommended. Blood urea nitrogen (BUN)/cr eatinine ratioOrdered By: Lauren Paulino on 03-06-2024 Urea nitrogen/Creatinine [Mass ratio] 14.2 mg/mg - [facility] CBC W/Diff, Automatedon 02-17 Absolute Lymph 2.29 X10 3/uL Normal 0.83-4.51 [facility] Comment on above: Performed By: #### L 500.4100, L501.9520, L501.5200, L100.0100, L503.0105, L500.4050, L506.1000, L501.9940 #### [facility] [address] [place], [address] Absolute Neut 4.8 X10 3/uL Normal 2.0-7.7 [facility] Comment on above: Performed By: #### L 500.4100, L501.9520, L501.5200, L100.0100, L503.0105, L500.4050, L506.1000, L501.9940 #### [facility] [address] [place], [address] Basophils/100 WBC (Bld) 0.5 % Normal 0-1 [facility] Comment on above: Performed By: #### L 500.4100, L501.9520, L501.5200, L100.0100, L503.0105, L500.4050, L506.1000, L501.9940 #### [facility] [address] [place], [address] Eosinophils/100 WBC (Bld) 0.9 % Normal 0-5 [facility] Comment on above: Performed By: #### L 500.4100, L501.9520, L501.5200, L100.0100, L503.0105, L500.4050, L506.1000, L501.9940 #### [facility] [address] [place], [address] Erythrocyte distribution width (RBC) [Ratio] 12.6 % Normal 11.6-14.6 [facility] Comment on above: Performed By: #### L 500.4100, L501.9520, L501.5200, L100.0100, L503.0105, L500.4050, L506.1000, L501.9940 #### [facility] [address] [place], [address] Hematocrit (Bld) [Volume fraction] 42.0 % Normal 40-54 [facility] Comment on above: Performed By: #### L 500.4100, L501.9520, L501.5200, L100.0100, L503.0105, L500.4050, L506.1000, L501.9940 #### [facility] [address] [place], [address] Hemoglobin (Bld) [Mass/Vol] 14.3 g/dL Normal 13.0-16.5 [facility] Comment on above: Performed By: #### L 500.4100, L501.9520, L501.5200, L100.0100, L503.0105, L500.4050, L506.1000, L501.9940 #### [facility] [address] [place], [address] IG% 0.500 Normal 0.0-0.9 [facility] Comment on above: Result Comment: IG% - Immature Granulocytes (promyelocytes, myelocytes and metamyelocytes) > 1% indicates that a LEFT SHIFT is Present. Performed By: #### L 500.4100, L501.9520, L501.5200, L100.0100, L503.0105, L500.4050, L506.1000, L501.9940 #### [facility] [address] [place], [address] Lymphocytes/100 WBC (Bld) 29.4 % Normal 19-41 [facility] Comment on above: Performed By: #### L 500.4100, L501.9520, L501.5200, L100.0100, L503.0105, L500.4050, L506.1000, L501.9940 #### [facility] [address] [place], [address] MCH (RBC) [Entitic mass] 32.0 pg Normal 27.0-32.0 [facility] Comment on above: Performed By: #### L 500.4100, L501.9520, L501.5200, L100.0100, L503.0105, L500.4050, L506.1000, L501.9940 #### [facility] [address] [place], [address] MCHC (RBC) [Mass/Vol] 34.0 g/dL Normal 32-36 [facility] Comment on above: Performed By: #### L 500.4100, L501.9520, L501.5200, L100.0100, L503.0105, L500.4050, L506.1000, L501.9940 #### [facility] [address] [place], [address] MCV (RBC) [Entitic vol] 94.0 fL Normal 80-94 [facility] Comment on above: Performed By: #### L 500.4100, L501.9520, L501.5200, L100.0100, L503.0105, L500.4050, L506.1000, L501.9940 #### [facility] [address] [place], [address] Monocytes/100 WBC (Bld) 7.1 % Normal 0-10 [facility] Comment on above: Performed By: #### L 500.4100, L501.9520, L501.5200, L100.0100, L503.0105, L500.4050, L506.1000, L501.9940 #### [facility] [address] [place], [address] Neutrophils/100 WBC (Bld) 61.6 % Normal 47-70 [facility] Comment on above: Performed By: #### L 500.4100, L501.9520, L501.5200, L100.0100, L503.0105, L500.4050, L506.1000, L501.9940 #### [facility] [address] [place], [address] Nucleated RBC (Bld) [#/Vol] 0 10*3/uL Normal 0-5 [facility] Comment on above: Performed By: #### L 500.4100, L501.9520, L501.5200, L100.0100, L503.0105, L500.4050, L506.1000, L501.9940 #### [facility] [address] [place], [address] Platelet mean volume (Bld) [Entitic vol] 9.6 fL Normal 6.2-12.0 [facility] Comment on above: Performed By: #### L 500.4100, L501.9520, L501.5200, L100.0100, L503.0105, L500.4050, L506.1000, L501.9940 #### [facility] [address] [place], [address] Platelets (Bld) [#/Vol] 300 10*3/uL Normal 150-450 [facility] Comment on above: Performed By: #### L 500.4100, L501.9520, L501.5200, L100.0100, L503.0105, L500.4050, L506.1000, L501.9940 #### [facility] [address] [place], [address] RBC (Bld) [#/Vol] 4.47 10*6/uL Low 4.6-6.2 [facility] Comment on above: Performed By: #### L 500.4100, L501.9520, L501.5200, L100.0100, L503.0105, L500.4050, L506.1000, L501.9940 #### [facility] [address] [place], [place], [id number] RDW SD 43.3 fl Normal 35.1-43.9 [facility] Comment on above: Performed By: #### L 500.4100, L501.9520, L501.5200, L100.0100, L503.0105, L500.4050, L506.1000, L501.9940 #### [facility] [address] [facility] [place], [place], [id number] WBC (Bld) [#/Vol] 7.8 10*3/uL Normal 4.4-11.0 [facility] Comment on above: Performed By: #### L 500.4100, L501.9520, L501.5200, L100.0100, L503.0105, L500.4050, L506.1000, L501.9940 #### [facility] [address] [facility] [place], [place], [id number] Carbon dioxide measurementOr dered By: Lauren Paulino on 03-06-2024 CO2 [Moles/Vol] 28.0 mmol/L 21.0-32.0 [facility] Chloride measurementOrdered By: Lauren Paulino on 03-06-2024 Chloride [Moles/Vol] 108 mmol/L High 98-107 [facility] Comprehensive Metabolic Prof ilon 03-06-2024 Albumin [Mass/Vol] 3.6 g/dL Normal 3.2-5.0 [facility] Comment on above: Order Comment: SNED PSAD TO FAX:[id number] Performed By: #### L 500.4100, L501.9520, L501.5200, L100.0100, L503.0105, L500.4050, L506.1000, L501.9940 #### [facility] [address] [place], [address] Albumin/Globulin [Mass ratio] 1.1 {ratio} Normal 0.9-2.4 [facility] Comment on above: Order Comment: SNED PSAD TO FAX:[id number] Performed By: #### L 500.4100, L501.9520, L501.5200, L100.0100, L503.0105, L500.4050, L506.1000, L501.9940 #### [facility] [address] [place], [address] ALK P 62 U/L Normal 45-117 [facility] Comment on above: Order Comment: SNED PSAD TO FAX:[id number] Performed By: #### L 500.4100, L501.9520, L501.5200, L100.0100, L503.0105, L500.4050, L506.1000, L501.9940 #### [facility] [address] [facility] [place], [address] ALT [Catalytic activity/Vol] 49 U/L Normal 16-61 [facility] Comment on above: Order Comment: SNED PSAD TO FAX:[id number] Performed By: #### L 500.4100, L501.9520, L501.5200, L100.0100, L503.0105, L500.4050, L506.1000, L501.9940 #### [facility] [address] [place], [address] AST [Catalytic activity/Vol] 25 U/L Normal 15-37 [facility] Comment on above: Order Comment: SNED PSAD TO FAX:[id number] Performed By: #### L 500.4100, L501.9520, L501.5200, L100.0100, L503.0105, L500.4050, L506.1000, L501.9940 #### [facility] [address] [place], [address] Bilirubin [Mass/Vol] 0.40 mg/dL Normal 0.20-1.00 [facility] Comment on above: Order Comment: SNED PSAD TO FAX:[id number] Result Comment: For patients on eltrombopag therapy, use of Dimension [place] TBIL is not recommended. Performed By: #### L 500.4100, L501.9520, L501.5200, L100.0100, L503.0105, L500.4050, L506.1000, L501.9940 #### [facility] [address] [place], [address] BUN/CRE 14.2 RATIO Normal 10-20 [facility] Comment on above: Order Comment: SNED PSAD TO FAX:[id number] Performed By: #### L 500.4100, L501.9520, L501.5200, L100.0100, L503.0105, L500.4050, L506.1000, L501.9940 #### [facility] [address] [place], [address] CA,Total 9.0 mg/dL Normal 8.5-10.1 [facility] Comment on above: Order Comment: SNED PSAD TO FAX:[id number] Performed By: #### L 500.4100, L501.9520, L501.5200, L100.0100, L503.0105, L500.4050, L506.1000, L501.9940 #### [facility] [address] [place], [address] Chloride [Moles/Vol] 108 mmol/L High 98-107 [facility] Comment on above: Order Comment: SNED PSAD TO FAX:[id number] Performed By: #### L 500.4100, L501.9520, L501.5200, L100.0100, L503.0105, L500.4050, L506.1000, L501.9940 #### [facility] [address] [place], [place], [id number] (948) CO2 [Moles/Vol] 28.0 mmol/L Normal 21.0-32.0 [facility] Comment on above: Order Comment: SNED PSAD TO FAX:[id number] Performed By: #### L 500.4100, L501.9520, L501.5200, L100.0100, L503.0105, L500.4050, L506.1000, L501.9940 #### [facility] [address] [place], [place], [id number] (018) Creatinine [Mass/Vol] 1.27 mg/dL Normal 0.70-1.30 [facility] Comment on above: Order Comment: SNED PSAD TO FAX:[id number] Result Comment: The validity of the calculated GFR GFRAA in patients over 70 years has not been determined. Clinical correlation is essential. Performed By: #### L 500.4100, L501.9520, L501.5200, L100.0100, L503.0105, L500.4050, L506.1000, L501.9940 #### [facility] [address] [place], [place], [id number] (808) EST GFR - AA 73 mL/min Normal >60 [facility] Comment on above: Order Comment: SNED PSAD TO FAX:[id number] Result Comment: Afri can Moz[place]ican GFR Calc Performed By: #### L 500.4100, L501.9520, L501.5200, L100.0100, L503.0105, L500.4050, L506.1000, L501.9940 #### [facility] [address] [place], [place], [id number] (223) GAP 5 Normal 5-15 [facility] Comment on above: Order Comment: SNED PSAD TO FAX:[id number] Performed By: #### L 500.4100, L501.9520, L501.5200, L100.0100, L503.0105, L500.4050, L506.1000, L501.9940 #### [facility] [address] [place], [address] GFR/1.73 sq M.predicted among non-blacks MDRD (S/P/Bld) [Vol rate/Area] 61 mL/min/{1.73_m2} Normal >60 [facility] Comment on above: Order Comment: SNED PSAD TO FAX:[id number] Result Comment: Non- GFR Calc Performed By: #### L 500.4100, L501.9520, L501.5200, L100.0100, L503.0105, L500.4050, L506.1000, L501.9940 #### [facility] [address] [place], [address] Globulin (S) [Mass/Vol] 3.4 g/dL Normal 2.2-4.2 [facility] Comment on above: Order Comment: SNED PSAD TO FAX:[id number] Performed By: #### L 500.4100, L501.9520, L501.5200, L100.0100, L503.0105, L500.4050, L506.1000, L501.9940 #### [facility] [address] [place], [address] Glucose [Mass/Vol] 114 mg/dL High 74-106 [facility] Comment on above: Order Comment: SNED PSAD TO FAX:[id number] Result Comment: Fast ing Glucose result from 100 to 125 mg/dL suggests IMPAIRED HOMEOSTASIS per A.D.A. criteria. Performed By: #### L 500.4100, L501.9520, L501.5200, L100.0100, L503.0105, L500.4050, L506.1000, L501.9940 #### [facility] [address] [place], [address] Potassium [Moles/Vol] 4.3 mmol/L Normal 3.5-5.1 [facility] Comment on above: Order Comment: SNED PSAD TO FAX:[id number] Performed By: #### L 500.4100, L501.9520, L501.5200, L100.0100, L503.0105, L500.4050, L506.1000, L501.9940 #### [facility] [address] [place], [address] Sodium [Moles/Vol] 141 mmol/L Normal 136-145 [facility] Comment on above: Order Comment: SNED PSAD TO FAX:[id number] Performed By: #### L 500.4100, L501.9520, L501.5200, L100.0100, L503.0105, L500.4050, L506.1000, L501.9940 #### [facility] [address] [place], [address] T PROT 7.0 g/dL Normal 6.4-8.2 [facility] Comment on above: Order Comment: SNED PSAD TO FAX:[id number] Performed By: #### L 500.4100, L501.9520, L501.5200, L100.0100, L503.0105, L500.4050, L506.1000, L501.9940 #### [facility] [address] [place], [address] Urea nitrogen [Mass/Vol] 18 mg/dL Normal 7-18 [facility] Comment on above: Order Comment: SNED PSAD TO FAX:[id number] Performed By: #### L 500.4100, L501.9520, L501.5200, L100.0100, L503.0105, L500.4050, L506.1000, L501.9940 #### [facility] [address] [place], [address] Diagnostic total prostate sp ecific antigen (PSA) measurementOrdered By: Lauren Paulino on 03-06-2024 Prostate Specific Antigen Total 4.09 ng/mL High 0.0-4.0 [facility] Comment on above: This test was perfor med using the TPSA assay method for [employer] chemistry system. Values obtained with differentassay methods cannot be used interchangably.When changing PSA assays in the course of monitoring apatient, additional sequential testing should be carriedout to confirm baseline values. Eosinophil percentageOrdered By: Lauren Paulino on 03-06-2024 Eosinophils/100 WBC (Bld) 0.9 % 0-5 [facility] Erythrocyte distribution wid th ratioOrdered By: Lauren Paulino on 03-06-2024 Erythrocyte distribution width (RBC) [Ratio] 12.6 % 11.6-14.6 [facility] Erythrocyte distribution wid th standard deviationOrdered By: Lauren Paulino on 03-06-2024 Erythrocyte distribution width (RBC) [Entitic vol] 43.3 fL 35.1-43.9 [facility] Estimated glomerular filtrat ion rate (GFR) AmericanOrdered By: Lauren Paulino on 03-06-2024 Estimated GFR (MDRD) Amer 73 mL/min >60 [facility] Comment on above: GFR Calc Glomerular filtration rate ( GFR) estimationOrdered By: Lauren Paulino on 03-06-2024 Estimated GFR (MDRD) Non-Af Amer 61 mL/min >60 [facility] Comment on above: Non- GFR Calc Glucose measurementOrdered B y: Lauren Paulino on 03-06-2024 Glucose [Mass/Vol] 114 mg/dL High 74-106 [facility] Comment on above: Fasting Glucose resu lt from 100 to 125 mg/dL suggests IMPAIRED HOMEOSTASIS per A.D.A. criteria. Hematocrit Auto (Bld) [Volum e fraction]Ordered By: Lauren Paulino on 03-06-2024 Hematocrit (Bld) [Volume fraction] 42.0 % 40-54 [facility] Hemoglobin measurementOrdere d By: Lauren Paulino on 03-06-2024 Hemoglobin (Bld) [Mass/Vol] 14.3 g/dL 13.0-16.5 [facility] High density lipoprotein (HD L) measurementOrdered By: Lauren Paulino on 03-06-2024 Cholesterol in HDL [Mass/Vol] 38 mg/dL Low >40 [facility] Comment on above: The drugs N-Acetylcy steine and Metamizole may falsely depress this assay. Reference Range HDL <40 mg/dL Low HDL Cholesterol HDL >or= 60 mg/dL High HDL Cholesterol Immature granulocytes/100 WB C Auto (Bld)Ordered By: Lauren Paulino on 03-06-2024 Immature granulocytes/100 WBC (Bld) 0.500 % 0.0-0.9 [facility] Comment on above: IG% - Immature Granu locytes (promyelocytes, myelocytes and metamyelocytes) > 1% indicates that a LEFT SHIFT is Present. Laboratory - Chemistry and C hemistry - challengeOrdered By: Lauren Paulino on 03-06-2024 AST [Catalytic activity/Vol] 25 U/L 15-37 [facility] Lipid Profileon 03-06-2024 Cholesterol [Mass/Vol] 175 mg/dL Normal 200 [facility] Comment on above: Order Comment: SNED PSAD TO FAX:[id number] Result Comment: <200 mg/dL Desirable 200-240 mg/dL Borderline >240 mg/dL High Risk Performed By: #### L 500.4100, L501.9520, L501.5200, L100.0100, L503.0105, L500.4050, L506.1000, L501.9940 #### [facility] [address] [place], [address] Cholesterol in HDL [Mass/Vol] 38 mg/dL Low [facility] Comment on above: Order Comment: SNED PSAD TO FAX:[id number] Result Comment: The drugs N-Acetylcysteine and Metamizole may falsely depress this assay. Reference Range HDL <40 mg/dL Low HDL Cholesterol HDL >or= 60 mg/dL High HDL Cholesterol Performed By: #### L 500.4100, L501.9520, L501.5200, L100.0100, L503.0105, L500.4050, L506.1000, L501.9940 #### [facility] [address] [place], [address] Cholesterol in LDL [Mass/Vol] 93 mg/dL Normal 0-130 [facility] Comment on above: Order Comment: SNED PSAD TO FAX:[id number] Performed By: #### L 500.4100, L501.9520, L501.5200, L100.0100, L503.0105, L500.4050, L506.1000, L501.9940 #### [facility] [address] [place], [address] Cholesterol in VLDL [Mass/Vol] 44 mg/dL High 5-40 [facility] Comment on above: Order Comment: SNED PSAD TO FAX:[id number] Performed By: #### L 500.4100, L501.9520, L501.5200, L100.0100, L503.0105, L500.4050, L506.1000, L501.9940 #### [facility] [address] [place], [address] Triglyceride [Mass/Vol] 222 mg/dL High [facility] Comment on above: Order Comment: SNED PSAD TO FAX:[id number] Result Comment: The drugs N-Acetylcysteine and Metamizole may falsely depress this assay. Serum Triglycerides Reference Interval Normal <150 mg/dL Borderline high 150 - 199 mg/dL High 200 - 499 mg/dL Very High > or = 500 mg/dL Performed By: #### L 500.4100, L501.9520, L501.5200, L100.0100, L503.0105, L500.4050, L506.1000, L501.9940 #### [facility] [address] [place], [address] Low density lipoprotein (LDL ) cholesterol measurementOrdered By: Lauren Paulino on 03-06-2024 Cholesterol in LDL [Mass/Vol] 93 mg/dL 0-130 [facility] Lymphocytes Auto (Unsp spec) [#/Vol]Ordered By: Lauren Paulino on 03-06-2024 Lymphocytes (Bld) [#/Vol] 2.29 10*3/uL 0.83-4.51 [facility] Lymphocytes/100 WBC Auto (Un sp spec)Ordered By: Lauren Paulino on 03-06-2024 Lymphocytes/100 WBC (Bld) 29.4 % 19-41 [facility] MCV (mean corpuscular volume ) determinationOrdered By: Lauren Paulino on 03-06-2024 MCV (RBC) [Entitic vol] 94.0 fL 80-94 [facility] Magnesiumon 03-06-2024 Magnesium [Mass/Vol] 2.2 mg/dL Normal 1.6-2.6 [facility] Comment on above: Order Comment: SNED PSAD TO FAX:[id number] Performed By: #### L 500.4100, L501.9520, L501.5200, L100.0100, L503.0105, L500.4050, L506.1000, L501.9940 #### [facility] [address] [place], [place], [id number] Magnesium measurementOrdered By: Lauren Paulino on 03-06-2024 Magnesium [Mass/Vol] 2.2 mg/dL 1.6-2.6 [facility] Mean corpuscular hemoglobin (MCH) determinationOrdered By: Lauren Paulino on 03-06-2024 MCH (RBC) [Entitic mass] 32.0 pg 27.0-32.0 [facility] Mean corpuscular hemoglobin concentration (MCHC) determinationOrdered By: Lauren Paulino on 03-06-2024 MCHC (RBC) [Mass/Vol] 34.0 g/dL 32-36 [facility] Mean platelet volume determi nationOrdered By: Lauren Paulino on 03-06-2024 Platelet mean volume (Bld) [Entitic vol] 9.6 fL 6.2-12.0 [facility] Monocyte percentageOrdered B y: Lauren Paulino on 03-06-2024 Monocytes/100 WBC (Bld) 7.1 % 0-10 [facility] Neutrophil percentageOrdered By: Lauren Paulino on 03-06-2024 Neutrophils/100 WBC (Bld) 61.6 % 47-70 [facility] Nucleated red blood cell per centageOrdered By: Lauren Paulino on 03-06-2024 Nucleated RBC/100 WBC (Bld) [Ratio] 0 % 0-5 [facility] PSA,Total- Diagnosticon 02-17 PSA, DIAGNOSTIC 4.09 ng/mL High 0.0-4.0 [facility] Comment on above: Order Comment: SNED PSAD TO FAX:[id number] Result Comment: This test was performed using the TPSA assay method for the [employer] chemistry system. Values obtained with different assay methods cannot be used interchangably. When changing PSA assays in the course of monitoring a patient, additional sequential testing should be carried out to confirm baseline values. Performed By: #### L 500.4100, L501.9520, L501.5200, L100.0100, L503.0105, L500.4050, L506.1000, L501.9940 ####[facility] [address] [place], [address] Platelet countOrdered By: Lorraine Paulino on 03-06-2024 Platelets (Bld) [#/Vol] 300 10*3/uL 150-450 [facility] Potassium measurementOrdered By: Lauren Paulino on 03-06-2024 Potassium [Moles/Vol] 4.3 mmol/L 3.5-5.1 [facility] RBC Auto (Bld) [#/Vol]Ordere d By: Lauren Paulino on 03-06-2024 RBC (Bld) [#/Vol] 4.47 10*6/uL Low 4.6-6.2 [facility] Serum anion gap measurementO rdered By: Lauren Paulino on 03-06-2024 Anion gap [Moles/Vol] 5 mmol/L 5-15 [facility] Serum globulin measurementOr dered By: Lauren Paulino on 03-06-2024 Globulin (S) [Mass/Vol] 3.4 g/dL 2.2-4.2 [facility] Serum or plasma alanine beckwith otransferase (ALT) measurementOrdered By: Lauren Paulino on 03-06-2024 ALT [Catalytic activity/Vol] 49 U/L 16-61 [facility] Serum or plasma albumin reed urement (mass/volume)Ordered By: Lauren Paulino on 03-06-2024 Albumin [Mass/Vol] 3.6 g/dL 3.2-5.0 [facility] Serum or plasma alkaline you sphatase measurementOrdered By: Lauren Paulino on 03-06-2024 ALP [Catalytic activity/Vol] 62 U/L 45-117 [facility] Serum or plasma calcium reed urement (mass/volume)Ordered By: Lauren Paulino on 03-06-2024 Calcium [Mass/Vol] 9.0 mg/dL 8.5-10.1 [facility] Serum or plasma cholesterol measurement (mass/volume)Ordered By: Lauren Paulino on 03-06-2024 Cholesterol [Mass/Vol] 175 mg/dL <200 [facility] Comment on above: <200 mg/dL Desirable 200-240 mg/dL Borderline >240 mg/dL High Risk Serum or plasma creatinine m easurement (mass/volume)Ordered By: Lauren Paulino on 03-06-2024 Creatinine [Mass/Vol] 1.27 mg/dL 0.70-1.30 [facility] Comment on above: The validity of the calculated GFR & GFRAA in patients over 70 years has not been determined. Clinical correlation is essential. Serum or plasma urea nitroge n measurement (mass/volume)Ordered By: Lauren Paulino on 03-06-2024 Urea nitrogen [Mass/Vol] 18 mg/dL -18 [facility] Sodium levelOrdered By: Unique Paulino on 03-06-2024 Sodium [Moles/Vol] 141 mmol/L 136-145 [facility] TSH QnOrdered By: Lauren Peng hner on 03-06-2024 Thyroid Stimulating Hormone (TSH) 2.660 uIU/mL 0.358-3.740 [facility] Thyroid Stim Hormone (TSH)on 03-06-2024 TSH 2.660 uIU/mL Normal 0.358-3.740 [facility] Comment on above: Order Comment: SNED PSAD TO FAX:[id number] Performed By: #### L 500.4100, L501.9520, L501.5200, L100.0100, L503.0105, L500.4050, L506.1000, L501.9940 #### [facility] [address] [place], [place], [id number] Total proteinOrdered By: Shireen Paulino on 03-06-2024 Protein [Mass/Vol] 7.0 g/dL 6.4-8.2 [facility] Triglycerides measurementOrd ered By: Lauren Paulino on 03-06-2024 Triglyceride [Mass/Vol] 222 mg/dL High <199 [facility] Comment on above: The drugs N-Acetylcy steine and Metamizole may falsely depress this assay.Serum Triglycerides Reference Interval Normal <150 mg/dL Borderline high 150 - 199 mg/dL High 200 - 499 mg/dL Very High > or = 500 mg/dL Very low density lipoprotein (VLDL) cholesterol measurementOrdered By: Lauren Paulino on 03-06-2024 VLDL Cholesterol 44 mg/dL High 5-40 [facility] Vitamin B12on 03-06-2024 Cobalamin (Vitamin B12) [Mass/Vol] 576 pg/mL Normal 211-911 [facility] Comment on above: Performed By: #### L 500.4100, L501.9520, L501.5200, L100.0100, L503.0105, L500.4050, L506.1000, L501.9940 ####[facility] [address] [place], [place], [id number] Vitamin B12 measurementOrder ed By: Lauren Paulino on 03-06-2024 Cobalamin (Vitamin B12) [Mass/Vol] 576 pg/mL 211-911 [facility] Vitamin D,25 Hydroxyon 03-06 Vitamin D 25-OH 51.3 ng/mL Normal [facility] Comment on above: Result Comment: Melanie min D 25(OH) Status Range Deficiency <20 ng/mL (50nmol/L) Insufficiency 20 - 30 ng/mL (50 - 75 nmol/L) Sufficiency 30 - 100 ng/mL (75 - 250 nmol/L) Toxicity >100 ng/mL (>250 nmol/L) Performed By: #### L 500.4100, L501.9520, L501.5200, L100.0100, L503.0105, L500.4050, L506.1000, L501.9940 ####[facility] [address] [place], [address] White blood cell (WBC) count Ordered By: Lauren Paulino on 03-06-2024 WBC (Bld) [#/Vol] 7.8 10*3/uL 4.4-11.0 [facility] MR/BMS.Bon 02-23-2024 MR/BMS.B [facility] [address] [place] [address] OFFICE VISIT Date of Service: 02/23/24 MR#: [id number] Acct: [id number] Name: CHI MANZANO Rep #: [id number] : 1960 Provider: Dr. Lauren turner MD Age/Sex: 63/M Location: [facility] Status: Signed Intake Vital Signs 02/19/23 07:10 02/23/24 08:54 Height 5 ft 5 in 5 ft 5 in Weight: 216 lb 4 oz BMI 35.9 BP 149/93 H Blood Pressure Location Lt brachial Position Sitting Respiration 16 Pulse 88 Pulse Source Monitor Temp 98.0 F Temp Source Temporal Pulse Oximetry (%) 91 Oxygen Delivery Method room air Intake Visit Reasons: Annual/Physical Chief Complaint: annual/physical Social Services Manager Required: No Accompanied by: Self Is patient in pain?: No Allergies morphine Adverse Reaction (Severe, Verified 02/23/24 08:49) Nausea Medications ???Medication ???Instructions ???Recorded ???Confirmed ???Type cholecalciferol (vitamin D3) 50 50 mcg PO DAILY 01/06/23 02/23/24 History mcg (2,000 unit) capsule multivitamin 1 tab PO DAILY 01/06/23 02/23/24 History omega-3 fatty acids-fish oil 360 1 cap PO DAILY 01/06/23 02/23/24 History mg-1,200 mg capsule (Fish Oil) ascorbic acid (vitamin C) 500 mg 500 mg PO DAILY 02/15/23 02/23/24 History tablet (C-500) losartan 50 mg tablet 50 mg PO DAILY #90 tabs 08/19/23 02/23/24 Rx codeine 10 mg-guaifenesin 100 mg/5 5 ml PO Q4-6H PRN cold symptoms 02/23/24 02/23/24 Rx mL oral liquid #120 mL PFSH Medical History (Updated 02/23/24 @ 09:[address] Lauren Paulino MD) Prostate cancer Wears glasses Cancer Alcohol use Arthritis Injury of head and neck History of diverticulitis Non-smoker Family hx of colon cancer Skin cancer Kidney stones Hypertension Surgical History Hx of repair of right rotator cuff Hx of hernia repair Hx of appendectomy History of cystoscopy Hx of colonoscopy Family History Mother Colon cancer, Onset Age: 70 Survives Social History Smoking Status: Never smoker alcohol intake: current alcohol intake frequency: a few times a week Alcohol type: beer substance use type: does not use what type of physical activity do you participate in: none HPI HPI Chief Complaint: annual/physical Details: CHI MANZANO, is a 63 M who presents to the office today for 6-month follow-up. 63-year-old gentleman who has a history of hypertension, osteoarthritis, elevated PSA. He does follow with urology, [facility] urology. He underwent biopsy, showing apparently low risk prostate cancer for which they are doing monitoring. He was presented with the various options and they are basically watching at this point. Urology follows PSA every 3 to 4 months at this point with intent to return only if ongoing rising PSA. Otherwise he is feeling well and doing well except that he developed COVID. He developed symptoms just about 2 weeks ago. He returned this past Wednesday. He was in [place], assisting his 's family member who was moving to an assisted living facility. Apparently that facility had active COVID around as well. When he returned home, he tested positive as long with his for COVID-19. He had already been ill for about a week or so at that point. He has cough and congestion, but believes he is slowly getting better at this point. A lot of fatigue and tiredness. No significant amounts of sputum production. Did not have any high-grade fever throughout. Did not lose taste or smell. Review of systems per chart. While he has discomfort from coughing, he does not have tobi chest pain with exertion, dyspnea on exertion. Prior to getting COVID he was feeling well overall. No new urinary symptoms. No fever or chills. No nausea or vomiting. Bowel movements are regular. Physical exam. Vital signs on chart. PERRLA. Sclera are clear. TMs are unremarkable with normal light reflexes. Canals are unremarkable. Posterior pharynx is unremarkable. Good dentition. No cervical or supraclavicular lymph nodes enlarged or tender. No clear thyromegaly. No thyroid nodules readily palpable. Lungs are without wheeze, rhonchi, rales. No E/A changes are heard. Heart is regular. Not tachycardic. No clear murmur, rub, or gallop is identified. The abdomen is soft. Bowel sounds are present. Nontender nondistended abdomen. No clear palpable masses in the abdomen. No significant leg edema. Cranial nerve examination 2 through 12 are grossly unremarkable nonlateralizing. No ankle clonus. No obvious rashes. No obvious significant skin lesions are identified. He does have several scattered actinic keratoses on the scalp. He follows with dermatology, Kwaku wang (more content not included)... Normal [facility] Basophil percentageon 2023 Basophil percentage 4.35 ng/mL 0.0-4.0 [facility] [place] Comment on above: This test was perfor med using the TPSA assay method for theDimension chemistry system. Values obtained with differentassay methods cannot be used interchangably.When changing PSA assays in the course of monitoring apatient, additional sequential testing should be carriedout to confirm baseline values. Basophil percentageOrdered B y: Lauren Paulino on 01-25-2023 Chloride [Moles/Vol] 107 mmol/L 98-107 [facility] Glucose [Mass/Vol] 179 mg/dL 74-106 [facility] Comment on above: Fasting Glucose resu lt greater than or equal to 126 mg/dL suggests DIABETES MELLITUS per A.D.A. criteria. Potassium [Moles/Vol] 3.8 mmol/L 3.5-5.1 [facility] Sodium [Moles/Vol] 139 mmol/L 136-145 [facility] - Chemistry and C hemistry - challengeOrdered By: Lauren Paulino on 01-25-2023 CO2 [Moles/Vol] 25.0 mmol/L 21.0-32.0 [facility] Urea nitrogen/Creatinine [Mass ratio] 16.7 mg/mg - [facility] No Panel InformationOrdered By: Lauren Paulino on 01-25-2023 Estimated GFR (MDRD) Amer 79 mL/min >60 [facility] Comment on above: GFR Calc Estimated GFR (MDRD) Non-Af Amer 65 mL/min >60 [facility] Comment on above: Non- GFR Calc Prostate Specific Antigen Total 4.97 ng/mL 0.0-4.0 [facility] Comment on above: This test was perfor med using the TPSA assay method for [facility]. Values obtained with differentassay methods cannot be used interchangably.When changing PSA assays in the course of monitoring apatient, additional sequential testing should be carriedout to confirm baseline values. Serum or plasma calcium reed urement (mass/volume)Ordered By: Lauren Paulino on 01-25-2023 Calcium [Mass/Vol] 9.1 mg/dL 8.5-10.1 [facility] Serum or plasma creatinine m easurement (mass/volume)Ordered By: Lauren Paulino on 01-25-2023 Creatinine [Mass/Vol] 1.20 mg/dL 0.70-1.30 [facility] Comment on above: The validity of the calculated GFR & GFRAA in patients over 70 years has not been determined. Clinical correlation is essential. Serum or plasma urea nitroge n measurement (mass/volume)Ordered By: Lauren Paulino on 01-25-2023 Urea nitrogen [Mass/Vol] 20 mg/dL 7-18 [facility] Thin prep Papanicolaou smear with manual screeningOrdered By: Lauren Paulino on 01-25-2023 Thin prep Papanicolaou smear with manual screening 7 5- [facility] Absolute lymphocyte countOrd ered By: Dr. Paulino on 07-21-2022 Lymphocytes Auto (Unsp spec) [#/Vol] 2.45 10*3/uL 0.83-4.51 [facility] Basophil percentageOrdered B y: Dr. Paulino on 07-21-2022 Basophils/100 WBC (Bld) 0.5 % 0-1 [facility] Bilirubin [Mass/Vol] 0.30 mg/dL 0.20-1.00 [facility] Comment on above: For patients on eltr ombopag therapy, use of Dimension [place] TBIL is not recommended. Chloride [Moles/Vol] 110 mmol/L 98-107 [facility] Cholesterol [Mass/Vol] 195 mg/dL <200 [facility] Comment on above: <200 mg/dL Desirable 200-240 mg/dL Borderline >240 mg/dL High Risk Eosinophils/100 WBC (Bld) 1.5 % 0-5 [facility] Glucose [Mass/Vol] 122 mg/dL 74-106 [facility] Comment on above: Fasting Glucose resu lt from 100 to 125 mg/dL suggests IMPAIRED HOMEOSTASIS per A.D.A. criteria. Neutrophils (Bld) [#/Vol] 4.3 10*3/uL 2.0-7.7 [facility] Neutrophils/100 WBC (Bld) 57.9 % 47-70 [facility] Potassium [Moles/Vol] 3.8 mmol/L 3.5-5.1 [facility] Protein [Mass/Vol] 7.3 g/dL 6.4-8.2 [facility] Sodium [Moles/Vol] 141 mmol/L 136-145 [facility] Triglyceride [Mass/Vol] 211 mg/dL <199 [facility] Comment on above: The drugs N-Acetylcy steine and Metamizole may falsely depress this assay.Serum Triglycerides Reference Interval Normal <150 mg/dL Borderline high 150 - 199 mg/dL High 200 - 499 mg/dL Very High > or = 500 mg/dL WBC (Bld) [#/Vol] 7.4 10*3/uL 4.4-11.0 [facility] Blood erythrocytes count (nu mber/volume)Ordered By: Dr. Paulino on 07-21-2022 RBC (Bld) [#/Vol] 4.74 10*6/uL 4.6-6.2 [facility] [place] Blood hemoglobin measurement (mass/volume)Ordered By: Dr. Paulino on 07-21-2022 Hemoglobin (Bld) [Mass/Vol] 15.1 g/dL 13.0-16.5 [facility] Blood lymphocytes/100 leukoc ytesOrdered By: Dr. Paulino on 07-21-2022 Lymphocytes/100 WBC (Bld) 33.1 % 19-41 [facility] Blood monocytes/100 leukocyt esOrdered By: Dr. Paulino on 07-21-2022 Monocytes/100 WBC (Bld) 6.6 % 0-10 [facility] Blood platelet mean volumeOr dered By: Dr. Paulino on 07-21-2022 Platelet mean volume (Bld) [Entitic vol] 10.2 fL 6.2-12.0 [facility] Determination of erythrocyte mean corpuscular volume (MCV)Ordered By: Dr. Paulino on 07-21-2022 MCV (RBC) [Entitic vol] 93.5 fL 80-94 [facility] Hematocrit Auto (Bld) [Volum e fraction]Ordered By: Dr. Paulino on 07-21-2022 Hematocrit (Bld) [Volume fraction] 44.3 % 40-54 [facility] - Chemistry and C hemistry - challengeOrdered By: Dr. Paulino on 07-21-2022 ALP [Catalytic activity/Vol] 56 U/L 45-117 [facility] ALT [Catalytic activity/Vol] 48 U/L 16-61 [facility] CO2 [Moles/Vol] 25.0 mmol/L 21.0-32.0 [facility] Globulin (S) [Mass/Vol] 3.6 g/dL 2.2-4.2 [facility] Urea nitrogen/Creatinine [Mass ratio] 20.8 mg/mg 10-20 [facility] - Hematology and Cell countsOrdered By: Dr. Paulino on 07-21-2022 Erythrocyte distribution width (RBC) [Entitic vol] 43.8 fL 35.1-43.9 [facility] Erythrocyte distribution width (RBC) [Ratio] 12.7 % 11.6-14.6 [facility] Immature granulocytes/100 WBC (Bld) 0.400 % 0.0-0.9 [facility] Comment on above: IG% - Immature Granu locytes (promyelocytes, myelocytes and metamyelocytes) > 1% indicates that a LEFT SHIFT is Present. MCH (RBC) [Entitic mass] 31.9 pg 27.0-32.0 [facility] Nucleated RBC/100 WBC (Bld) [Ratio] 0 % 0-5 [facility] MCHC Auto (RBC) [Mass/Vol]Or dered By: Dr. Paulino on 07-21-2022 MCHC (RBC) [Mass/Vol] 34.1 g/dL 32-36 [facility] No Panel InformationOrdered By: Dr. Paulino on 07-21-2022 Estimated GFR (MDRD) Amer 75 mL/min >60 [facility] Comment on above: GFR Calc Estimated GFR (MDRD) Non-Af Amer 62 mL/min >60 [facility] Comment on above: Non- GFR Calc Prostate Specific Antigen Screen 4.60 ng/mL 0.00-4.00 [facility] Comment on above: This test was perfor med using the TPSA assay method for thePrizeBox™ chemistry system. Values obtained with differentassay methods cannot be used interchangably.When changing PSA assays in the course of monitoring apatient, additional sequential testing should be carriedout to confirm baseline values. Vitamin D 25-Hydroxy 47.2 ng/mL [facility] Comment on above: Vitamin D 25(OH) Sta tus Range Deficiency <20 ng/mL (50nmol/L) Insufficiency 20 - 30 ng/mL (50 - 75 nmol/L) Sufficiency 30 - 100 ng/mL (75 - 250 nmol/L) Toxicity >100 ng/mL (>250 nmol/L) Platelets bldOrdered By: Dr. Paulino on 07-21-2022 Platelets (Bld) [#/Vol] 242 10*3/uL 150-450 [facility] Serum or plasma albumin reed urement (mass/volume)Ordered By: Dr. Paulino on 07-21-2022 Albumin [Mass/Vol] 3.7 g/dL 3.2-5.0 [facility] Serum or plasma albumin/glob ulin mass ratioOrdered By: Dr. Paulino on 07-21-2022 Albumin/Globulin [Mass ratio] 1.0 {ratio} 0.9-2.4 [facility] Serum or plasma calcium reed urement (mass/volume)Ordered By: Dr. Paulino on 07-21-2022 Calcium [Mass/Vol] 9.2 mg/dL 8.5-10.1 [facility] Serum or plasma cholesterol in HDL measurement (mass/volume)Ordered By: Dr. Paulino on 07-21-2022 Cholesterol in HDL [Mass/Vol] 32 mg/dL >40 [facility] Comment on above: The drugs N-Acetylcy steine and Metamizole may falsely depress this assay. Reference Range HDL <40 mg/dL Low HDL Cholesterol HDL >or= 60 mg/dL High HDL Cholesterol Serum or plasma cholesterol in VLDL measurement (mass/volume)Ordered By: Dr. Paulino on 07-21-2022 Cholesterol in VLDL [Mass/Vol] 42 mg/dL 5-40 [facility] Serum or plasma creatinine m easurement (mass/volume)Ordered By: Dr. Paulino on 07-21-2022 Creatinine [Mass/Vol] 1.25 mg/dL 0.70-1.30 [facility] Comment on above: The validity of the calculated GFR & GFRAA in patients over 70 years has not been determined. Clinical correlation is essential. Serum or plasma low density lipoprotein (LDL) cholesterol measurement (mass/volume)Ordered By: Dr. Paulino on 07-21-2022 Cholesterol in LDL [Mass/Vol] 121 mg/dL 0-130 [facility] Serum or plasma urea nitroge n measurement (mass/volume)Ordered By: Dr. Paulino on 07-21-2022 Urea nitrogen [Mass/Vol] 26 mg/dL 7-18 [facility] Thin prep Papanicolaou smear with manual screeningOrdered By: Dr. Paulino on 07-21-2022 Thin prep Papanicolaou smear with manual screening 28 U/L 15-37 [facility] Thin prep Papanicolaou smear with manual screening 6 5-15 [facility] Basophil percentageon 2021 Chloride [Moles/Vol] 107 mmol/L 98-107 [facility] Work Phone: Glucose [Mass/Vol] 100 mg/dL 74-106 [facility] Work Phone: Comment on above: Fasting Glucose resu lt from 100 to 125 mg/dL suggests IMPAIRED HOMEOSTASIS per A.D.A. criteria. Potassium [Moles/Vol] 3.6 mmol/L 3.5-5.1 [facility] Work Phone: Sodium [Moles/Vol] 143 mmol/L 136-145 [facility] Work Phone: Laboratory - Chemistry and C hemistry - challengeon 01-26-2022 CO2 [Moles/Vol] 31.0 mmol/L 21.0-32.0 [facility] Work Phone: Urea nitrogen/Creatinine [Mass ratio] 17.3 mg/mg 10-20 [facility] Work Phone: No Panel Informationon 01-26 Estimated GFR (MDRD) Amer 74 mL/min >60 [facility] Work Phone: Comment on above: GFR Calc Estimated GFR (MDRD) Non-Af Amer 61 mL/min >60 [facility] Work Phone: Comment on above: Non- GFR Calc Serum or plasma calcium reed urement (mass/volume)on 01-26-2022 Calcium [Mass/Vol] 9.7 mg/dL 8.5-10.1 [facility] Work Phone: Serum or plasma creatinine m easurement (mass/volume)on 01-26-2022 Creatinine [Mass/Vol] 1.27 mg/dL 0.70-1.30 [facility] Work Phone: Comment on above: The validity of the calculated GFR & GFRAA in patients over 70 years has not been determined. Clinical correlation is essential. Serum or plasma urea nitroge n measurement (mass/volume)on 01-26-2022 Urea nitrogen [Mass/Vol] 22 mg/dL 7-18 [facility] Work Phone: Thin prep Papanicolaou smear with manual screeningon 01-26-2022 Thin prep Papanicolaou smear with manual screening 5 5-15 [facility] Work Phone: Whole blood hemoglobin A1c/t otal hemoglobin ratio (mass fraction)on 01-26-2022 HbA1c (Bld) [Mass fraction] 6.1 % 3.8-5.6 [facility] Work Phone: Comment on above: Normal < 5.7 % Predi abetic 5.7 - 6.4 % Diabetic >or= 6.5 % Please note range changes. OBSOLETEon 12-24-2020 OBSOLETE Refill (FAMPWS) -- CHI MANZANO ([id number]) 1960 M Date Time Provider Department 12/24/20 SIMÓN DURANDPCRISTOPHER During your visit today, we recorded the following information about you: Marialuisa Medel [facility] 12/24/2020 8:12 AM Signed Patient has been identified by name and date of : Yes Pending Prescriptions Disp Refills LOSARTAN 50 MG TABLET 90 tablet 1 Sig: Take 1 tablet by mouth once daily. For blood pressure ESME: No RX INSTRUCTIONS: Patient aware RX will be sent to pharmacy. No need to notify patient. Marialuisa Medel Pss Traci Tee Ma 12/24/2020 12:04 PM Signed Last office visit: 11/29/20 F/u scheduled: none Traci Tee Ma Allergies As of Date: 12/24/2020 Noted Allergy Reaction HAY FEVER [Other] 03/20/2005 16 - Unknown LISINOPRIL 07/18/2014 3 - Cough Date Reviewed: 12/05/2020 Reviewed by: Simón Durand MD - Fully Assessed Reason for Visit: Refill Request [94] Visit Diagnosis:Essential hypertension, benign [I10] Order(s):losartan (COZAAR) 50 mg tabletTake 1 tablet by mouth once daily. For blood pressureDisp: 90 tabletRfl: 1 Prescriptions as of 12/24/2020 - losartan (COZAAR) 50 mg tablet Take 1 tablet by mouth once daily. For blood pressure - omega-3 fatty acids (FISH OIL CONCENTRATE ORAL) Take by mouth. - calcium carbonate/vitamin D3 (CALCIUM 500 + D, D3, ORAL) Take by mouth. - biotin 1 mg cap Take by mouth. - ascorbic acid (VITAMIN C ORAL) Take by mouth. - melatonin 1 mg tablet Take by mouth. - multivitamin tablet Take 1 tablet by mouth once daily. - Omeprazole Magnesium (PRILOSEC OTC) 20 mg tablet Take 1 tablet by mouth daily before breakfast. 1/2 hr before meal. Meds Comments as of 03/24/2012: No Rx, routine OTC or supplement March 24, 2012 Problem List As Of Date 12/24/2020 Noted Resolved Disorder of bone and cartilage, unspecified [M8*08/13/2005 08/17/2017 Disorders of bursae and tendons in shoulder reg*06/17/2006 03/01/2014 Abdominal pain, right lower quadrant [R10.31] 06/30/2010 03/01/2014 Cervical spondylosis without myelopathy [M47.81*10/03/2010 03/01/2014 Essential hypertension, benign [I10] 03/01/2014 Vitamin D deficiency [E55.9] 03/01/2014 08/17/2017 JACOB-inhibitor cough [R05, T46.4X5A] 07/18/2014 06/25/2016 Obesity, Class I, BMI 30-34.9 [E66.9] 08/17/2017 GERD without esophagitis [K21.9] 09/02/2020 Screening for prostate cancer [Z12.5] 09/02/2020 Well adult exam [Z00.00] 11/29/2020 Elevated hemoglobin A1c [R73.09] 11/29/2020 Elevated PSA [R97.20] 11/29/2020 Prescriptions ordered this encounter Disp Refills Start End LOSARTAN 50 MG TABLET 90 t* 1 12/24/2020 12/19/2021 Route: ORAL Sig: Take 1 tablet by mouth once daily. For blood pressure Medications Discontinued During This Encounter Prescriptions - losartan (COZAAR) 50 mg tablet (Discontinued) Take 1 tablet by mouth once daily. For blood pressure Encounter Status:Closed by [facility]24/[facility]I [facility] ([id number]) 1960 M Date Time Provider Department 12/02/20 [facility]ANY [facility] During your visit today, we recorded the following information about you: Brittany Andersen PA-C 12/02/2020 2:48 PM Signed Let patient know that PSA shows mild elevation still but %free is 21% which is more likely of benign nature. We will want to monitor this at least every 6 mos. WISAM Gonsalez Ma 12/02/2020 3:49 PM Addendum Patient was notified and scheduled for recheck in 6 months Can you please file orders Monse Smith Ma 12/02/2020 3:49 PM Signed Addended by: MONSE SMITH MA on: 12/02/2020 03:49 PM Modules accepted: Orders Brittany Andersen PA-C 12/03/2020 8:29 AM Signed Addended by: BRITTANY TINOCO on: 12/03/2020 08:29 AM Modules accepted: Orders Allergies As of Date: 12/02/2020 Noted Allergy Reaction HAY FEVER [Other] 03/20/2005 16 - Unknown LISINOPRIL 07/18/2014 3 - Cough Date Reviewed: 11/29/2020 Reviewed by: Monse Smith Ma - Fully Assessed Reason for Visit: Results [95] Primary Visit Diagnosis:Elevated PSA [R97.20] Order(s):PSA/PROSTSPECAG DIAG [SQPSA] Order #: [id number] FUTURE PSA FREE [SQPSATF] Order #: [id number] FUTURE Prescriptions as of 12/03/2020 - losartan (COZAAR) 50 mg tablet Take 1 tablet by mouth once daily. For blood pressure - omega-3 fatty acids (FISH OIL CONCENTRATE ORAL) Take by mouth. - calcium carbonate/vitamin D3 (CALCIUM 500 + D, D3, ORAL) Take by mouth. - biotin 1 mg cap Take by mouth. - ascorbic acid (VITAMIN C ORAL) Take by mouth. - melatonin 1 mg tablet Take by mouth. - multivitamin tablet Take 1 tablet by mouth once daily. - Omeprazole Magnesium (PRILOSEC OTC) 20 mg tablet Take 1 tablet by mouth daily before breakfast. 1/2 hr before meal. Meds Comments as of 03/24/2012: No Rx, routine OTC or supplement March 24, 2012 Problem List As Of Date 12/02/2020 Noted Resolved Disorder of bone and cartilage, unspecified [M8*08/13/2005 08/17/2017 Disorders of bursae and tendons in shoulder reg*06/17/2006 03/01/2014 Abdominal pain, right lower quadrant [R10.31] 06/30/2010 03/01/2014 Cervical spondylosis without myelopathy [M47.81*10/03/2010 03/01/2014 Essential hypertension, benign [I10] 03/01/2014 Vitamin D deficiency [E55.9] 03/01/2014 08/17/2017 JACOB-inhibitor cough [R05, T46.4X5A] 07/18/2014 06/25/2016 Obesity, Class I, BMI 30-34.9 [E66.9] 08/17/2017 GERD without esophagitis [K21.9] 09/02/2020 Screening for prostate cancer [Z12.5] 09/02/2020 Well adult exam [Z00.00] 11/29/2020 Elevated hemoglobin A1c [R73.09] 11/29/2020 Elevated PSA [R97.20] 11/29/2020 Encounter Status:Closed by MONSE SMITH MA on 12/02/20 [facility] CNOVon 11-29-2020 CNOV Office Visit (FAMPWS ) -- CHI MANZANO ([id number]) 1960 M Date Time Provider Department 11/29/20 1:00 PM [facility] During your visit today, we recorded the following information about you: Pulse Respiration Blood pressure Weight 74/minute 14/minute 122/80 98 kg Height 1.676 m Simón Durand MD 12/05/2020 10:57 AM Signed Chief Complaint Patient presents with: Physical HPI [...] Laterality Date - COLONOSCOP W/ OR W/O [facility] 02/14/07 - COLONOSCOP W/ OR W/O [facility] 02/21/2018 Colonoscopy - LAPAROSCOPY, SURGICAL, APPENDECTOMY - - REPAIR ING HERNIA,5+Y/O,REDUCIBL Hernia repair, inguinal [...] 74 Resp 14 Ht 167.6 cm (5' 6) Wt 98 kg (216 lb) BMI 34.86 [...] Negative Negative Ketones, Urine Negative Negative Specific [place], Ur 1.005 - 1.03 (more content not included)... Normal [facility] PSA, Freeon 11-29-2020 PSA, Diagnostic 3.34 ng/mL High 0.00-2.59 [facility] Comment on above: Result Comment: Pamela pedersen PSA test methodology used is the Electrochemiluminescence Immunoassay. The presence of an abnormal result flag in this range (2.6 to 4.0 ng/mL) should not necessarily be an automatic indicator for prostate biopsy. For an individual patient, the significance of a PSA level should be interpreted in a broad clinical context, including age, race, family history, digital rectal exam, prostate size, results of prior testing (prostate biopsy, free PSA, PCA3), and use of 5-alpha reductase inhibitors. Considering the high incidence of asymptomatic cancer in the general population that may not pose an ultimate risk to a patient, the decision to recommend urological evaluation or prostate biopsy should be individualized after consideration of all these factors. REFERENCE: Alan Piña M.D., M.P.H., Juan Melchor M.D., Ph.D., Nura Ford M.D., Manuela Givens, M.P.H., Edilma Wilson Sc.D. Effect of Verification Bias on Screening for Prostate Cancer by Measurement of Prostatic Specific Antigen. N Engl J Med 2003,349:335-42. Performed By: #### P SATF #### [place] [address] PSA, Percent Free DO NOT ORDER FOR SUPERIOR ONLY 21 % Normal [facility] Comment on above: Result Comment: Less than 11% suggestive of prostate cancer. Greater than 23% suggestive of benign condition. Performed By: #### P SATF #### [place] [address] Comp Metabolic Panelon 11-27 Albumin [Mass/Vol] 4.4 g/dL Normal 3.9-4.9 [facility] Comment on above: Performed By: #### P SA, HBA1C, LIPNF #### [place] [address] [place] [address] ALP [Catalytic activity/Vol] 59 U/L Normal 38-113 [facility] Comment on above: Performed By: #### P SA, HBA1C, LIPNF #### [place] [address] ALT [Catalytic activity/Vol] 25 U/L Normal 10-54 [facility] Comment on above: Performed By: #### P SA, HBA1C, LIPNF #### [address] [place], [place] [address] Anion gap [Moles/Vol] 10 mmol/L Normal 9-18 [facility] Comment on above: Performed By: #### P SA, HBA1C, LIPNF #### [facility] [address] [place] [id number] AST [Catalytic activity/Vol] 22 U/L Normal 14-40 [facility] Comment on above: Performed By: #### P SA, HBA1C, LIPNF #### [place] [address] [place] [address] Bilirubin [Mass/Vol] 0.2 mg/dL Normal 0.2-1.3 [facility] Comment on above: Performed By: #### P SA, HBA1C, LIPNF #### [place] [address] Calcium [Mass/Vol] 9.6 mg/dL Normal 8.5-10.2 [facility] Comment on above: Performed By: #### P SA, HBA1C, LIPNF #### [place] [address] Chloride [Moles/Vol] 106 mmol/L High 97-105 [facility] Comment on above: Performed By: #### P SA, HBA1C, LIPNF #### [place] [address] [place] [id number] CO2 [Moles/Vol] 23 mmol/L Normal 22-30 [facility] Comment on above: Performed By: #### P SA, HBA1C, LIPNF #### [place] [address] [place], [place] [address] Creatinine [Mass/Vol] 1.19 mg/dL Normal 0.73-1.22 [facility] Comment on above: Performed By: #### P SA, HBA1C, LIPNF #### [place] [address] [place] [id number] eGFR- Amer. >60 Normal [facility] Comment on above: Performed By: #### P SA, HBA1C, LIPNF #### [facility] [employer] [address] [place], [place] [id number] eGFR-All Other Races >60 Normal [facility] Comment on above: Result Comment: eGFR (Estimated GFR) Units of measure: mL/min/1.73 meters squared eGFR is derived from the reexpressed MDRD Study equation using the following parameters: serum creatinine, age, gender and race. The creatinine assay has been calibrated to be traceable to IDMS. An eGFR <60 mL/min/1.73m2 for >3 months is consistent with chronic kidney disease. Refer to KDOQI guidelines for clinical interpretation. In patients with unstable renal function, e.g. those with acute kidney injury, the eGFR may not accurately reflect actual GFR. Performed By: #### P SA, HBA1C, LIPNF #### [facility] [address] [place], [place] [address] Glucose [Mass/Vol] 106 mg/dL High 74-99 [facility] Comment on above: Result Comment: The [place] Diabetes Association (ADA) provides guidance for cutoff values for fasting glucose and random glucose. The ADA defines fasting as no caloric intake for at least 8 hours. Fasting plasma glucose results between 100 to 125 mg/dL indicate increased risk for diabetes (prediabetes). Fasting plasma glucose results greater than or equal to 126 mg/dL meet the criteria for diagnosis of diabetes. In the absence of unequivocal hyperglycemia, results should be confirmed by repeat testing. In a patient with classic symptoms of hyperglycemia or hyperglycemic crisis, random plasma glucose results greater than or equal to 200 mg/dL meet the criteria for diagnosis of diabetes. Reference: Standards of Medical Care in Diabetes 2016, [place] [employer]. Diabetes Care. 2016.39(Suppl 1). Performed By: #### P SA, HBA1C, LIPNF #### [facility] [employer] [address] [place], [place] [address] Potassium [Moles/Vol] 4.0 mmol/L Normal 3.7-5.1 [facility] Comment on above: Performed By: #### P SA, HBA1C, LIPNF #### [facility] [address] [place] [address] Protein [Mass/Vol] 7.0 g/dL Normal 6.3-8.0 [facility] Comment on above: Performed By: #### P SA, HBA1C, LIPNF #### [facility] [address] [place] [address] Sodium [Moles/Vol] 139 mmol/L Normal 136-144 [facility] Comment on above: Performed By: #### P SA, HBA1C, LIPNF #### [place] [address] Urea nitrogen [Mass/Vol] 29 mg/dL High 9-24 [facility] Comment on above: Performed By: #### P SA, HBA1C, LIPNF #### [place] [address] [place] [address] Hemoglobin A1con 11-27-2020 Glucose [Mass/Vol] 123 mg/dL Normal [facility] Comment on above: Result Comment: eAG: (Estimated average glucose) is a calculated value from HgbA1c and is food service sales representatives of the average blood glucose level in the last 2-3 month period. Performed By: #### P SA, HBA1C, LIPNF #### [place] [address] HbA1c (Bld) [Mass fraction] 5.9 % High 4.3-5.6 [facility] [facility] Comment on above: Result Comment: Amer ican Diabetes Association guidelines indicate that patients with HgbA1c in the range 5.7-6.4% are at increased risk for development of diabetes, and intervention by lifestyle modification may be beneficial. HgbA1c greater or equal to 6.5% is considered diagnostic of diabetes. Performed By: #### P SA, HBA1C, LIPNF #### [facility] [address] [address] Lipid Panel, Nonfaston 11-27 Cholesterol [Mass/Vol] 189 mg/dL Normal <200 [facility] Comment on above: Result Comment: <200 mg/dL, Desirable 200-239 mg/dL, Borderline high >239 mg/dL, High Performed By: #### P SA, HBA1C, LIPNF #### [facility] [address] [address] HDL Cholesterol, NF 31 mg/dL Low >39 [facility] Comment on above: Result Comment: 40-5 9 mg/dL, Acceptable >59 mg/dL, High: Negative risk factor for coronary heart disease <40 mg/dL, Low: Positive risk factor for coronary heart disease Performed By: #### P SA, HBA1C, LIPNF #### [facility] [address] [address] LDL Cholesterol, NF 112 mg/dL High <100 [facility] Comment on above: Result Comment: <100 mg/dL, Optimal 100-129 mg/dL, Near optimal/above optimal 130-159 mg/dL, Borderline high 160-189 mg/dL, High >189 mg/dL, Very high Secondary prevention optimal LDL Cholesterol levels are recommended to be < 70 mg/dL Performed By: #### P SA, HBA1C, LIPNF #### [facility] [address] [address] LDL/HDL Ratio, NF 3.61 mg/dL High <2.54 [facility] Comment on above: Result Comment: Refe robin: 1. National Cholesterol Education Program ATP III Guideline At-A-Glance Quick Desk Reference: National Heart, Lung, and Blood [place]. National Institutes of Health. 2001: NIH Publication No. 01-3305. 2. An International Atherosclerosis Society position paper: global recommendations for the management of dyslipidemia: executive summary, Atherosclerosis. 2014: 232(2):410-413. Performed By: #### P SA, HBA1C, LIPNF #### [facility] [address] [address] Non HDL Chol, NF 158 mg/dL High <130 [facility] Comment on above: Result Comment: <130 mg/dL, Optimal 130-159 mg/dL, Near optimal/above optimal 160-189 mg/dL, Borderline high 190-219 mg/dL, High >219 mg/dL, Very high Secondary prevention optimal non HDL Cholesterol levels are recommended to be < 100 mg/dL Performed By: #### P SA, HBA1C, LIPNF #### [address] [address] T Chol/HDL Ratio NF 6.10 mg/dL High <5.10 [facility] Comment on above: Performed By: #### P SA, HBA1C, LIPNF #### [address] [place] [address] Triglycerides, NF 228 mg/dL High <150 [facility] Comment on above: Result Comment: <150 mg/dL, Normal 150-199 mg/dL, Borderline high 200-499 mg/dL, High >499 mg/dL, Very high Performed By: #### P SA, HBA1C, LIPNF #### [address] [address] VLDL Cholesterol, NF 46 mg/dL High <30 [facility] Comment on above: Performed By: #### P SA, HBA1C, LIPNF #### [facility] [address] [address] PSA, [employer] 11-27-2020 PSA, Diagnostic 3.52 ng/mL High 0.00-2.59 [facility] Comment on above: Result Comment: Tota l PSA test methodology used is the Electrochemiluminescence Immunoassay. The presence of an abnormal result flag in this range (2.6 to 4.0 ng/mL) should not necessarily be an automatic indicator for prostate biopsy. For an individual patient, the significance of a PSA level should be interpreted in a broad clinical context, including age, race, family history, digital rectal exam, prostate size, results of prior testing (prostate biopsy, free PSA, PCA3), and use of 5-alpha reductase inhibitors. Considering the high incidence of asymptomatic cancer in the general population that may not pose an ultimate risk to a patient, the decision to recommend urological evaluation or prostate biopsy should be individualized after consideration of all these factors. REFERENCE: Alan Piña M.D., M.P.H., Juan Melchor M.D., Ph.D., Nura Ford M.D., Manuela Givens M.P.H., Edilma Wilson Sc.D. Effect of Verification Bias on Screening for Prostate Cancer by Measurement of Prostatic Specific Antigen. N Engl J Med 2003,349:335-42. Performed By: #### P SA, HBA1C, LIPNF #### [facility] [employer] [address] [phone] Urinalysis with Microscopico n 11-27-2020 Bilirubin, Urine Negative Normal Negative [facility] Comment on above: Performed By: #### U AWMIC #### [address] [phone] Clarity (U) Clear Normal Clear [facility] Comment on above: Performed By: #### U AWMIC #### [address] [phone] Color (U) Yellow Normal Yellow [facility] Comment on above: Performed By: #### U AWMIC #### [address] [phone] Comments SEE COMMENT Normal [facility] Comment on above: Result Comment: N/A Performed By: #### U AWMIC #### [facility] [employer] [facility] [phone] Crystals LM Nom (Urine sed) SEE COMMENT Critically abnormal 0 [facility] Comment on above: Result Comment: Few Calcium Oxalate Crystal Performed By: #### U AWMIC #### [facility] [employer] [facility] [phone] Epithelial cells LM Ql (Urine sed) SEE COMMENT Normal [facility] Comment on above: Result Comment: Few Squamous Epithelial Cells Performed By: #### U AWMIC #### [facility] [address] [place], [place] [address] Glucose Ql (U) Negative Normal Negative [facility] Comment on above: Performed By: #### U AWMIC #### [address] [place] [phone] Hemoglobin/Blood,Ur Negative Normal Negative [facility] Comment on above: Performed By: #### U AWMIC #### [address] [address] Ketones Ql (U) Negative Normal Negative [facility] Comment on above: Performed By: #### U AWMIC #### [address] [place] [address] Leukest Negative Normal Negative [facility] Comment on above: Performed By: #### U AWMIC #### [address] [place] [address] Nitrite Ql (U) Negative Normal Negative [facility] Comment on above: Performed By: #### U AWMIC #### [address] [address] pH (U) 5.0 [pH] Normal 5.0-8.0 [facility] Comment on above: Performed By: #### U AWMIC #### [address] [place] [address] Protein, Urine Negative Normal Negative [facility] Comment on above: Performed By: #### U AWMIC #### [address] [address] RBC 0-3 Normal 0-3 [facility] Comment on above: Performed By: #### U AWMIC #### [address] [address] Specific [place], Ur 1.026 Normal 1.005-1.030 [facility] Comment on above: Performed By: #### U AWMIC #### [facility] [employer] [address] [place], [place] [phone] Urine Luigi Comment SEE COMMENT Normal [facility] Comment on above: Result Comment: N/A Performed By: #### U AWMIC #### [facility] [employer] [address] [place], [place] [address] Urobilinogen (U) [Mass/Vol] Negative Normal Negative [facility] Comment on above: Performed By: #### U AWMIC #### [facility] [employer] [address] [place], [place] [address] WBC 0-5 Normal 0-5 [facility] Comment on above: Performed By: #### U AWMIC #### [facility] [employer] [address] [place], [place] [address] CNOVon 09-02-2020 CNOV Office Visit (FAMPWS ) -- CHI MANZANO ([id number]) 1960 M Date Time Provider Department 09/02/20 10:40 AM SIMÓN DURAND FAMPWS During your visit today, we recorded the following information about you: Pulse Respiration Blood pressure Weight 72/minute 16/minute 138/78 97.2 kg Simón Durand MD 09/02/2020 1:58 PM Signed Chief Complaint Patient presents with: Follow Up: transfer care Dr Rob, denied current concerns HPI Chi Manzano is a 59 year old male who presents here today for Above Complaints. and Chronic Medical Conditions.. Patient with Hx of HTN, GERD as well as those reviewed and addressed below and in ROS. Patient transferring care today due to the mcfp of his previous PCP. May use his omeprazole once every few months. Past medical history, appointments, medications, allergies reviewed. Previous Medical History PAST MEDICAL HISTORY Diagnosis Date - Diverticulitis of colon (without mention of hemorrhage)(562.11) - Essential hypertension, benign 03/01/2014 - Obesity, Class I, BMI 30-34.9 08/17/2017 Previous Surgical History PAST SURGICAL HISTORY Procedure Laterality Date - COLONOSCOP W/ OR W/O [facility] SPEC 02/14/07 - COLONOSCOP W/ OR W/O [facility] SPEC 02/21/2018 Colonoscopy - LAPAROSCOPY, SURGICAL, APPENDECTOMY [...] normal. No masses, organomegaly. Extremities: No deformities, ed (more content not included)... Normal [facility] Vital Signs Date Time Vital Sign Value Performing Clinician Doron amos 06-26-2024 10:02-0400 Body height 165.[address] Lauren Paulino MD Work Phone: [facility] 06-26-2024 10:02-0400 Body mass index (BMI) [Ratio] 38.2 kg/m2 Dr. Lauren Paulino MD Work Phone: [facility] 06-26-2024 10:02-0400 Body temperature 98.2 [degF] Dr. Lauren Paulino MD Work Phone: [facility] 06-26-2024 10:02-0400 Body weight 104.[address] Lauren Paulino MD Work Phone: [facility] 06-26-2024 10:02-0400 Diastolic blood pressure 90 mm[Hg] Dr. Lauren Paulino MD Work Phone: [facility] 06-26-2024 10:02-0400 Heart rate 75 /min Dr. Lauren Paulino MD Work Phone: [facility] 06-26-2024 10:02-0400 Respiratory rate 16 /min Dr. Lauren Paulino MD Work Phone: [facility] 06-26-2024 10:02-0400 SaO2% (BldA) [Mass fraction] 92 % Dr. Lauren Paulino MD Work Phone: [facility] 06-26-2024 10:02-0400 Systolic blood pressure 158 mm[Hg] Dr. Lauren Paulino MD Work Phone: [facility] 02-19-2023 09:10-0400 Body temperature 98.4 [degF] Dr. Lauren Paulino Work Phone: [facility] 02-19-2023 09:10-0400 Diastolic blood pressure 84 mm[Hg] Dr. Lauren Paulino Work Phone: [facility] 02-19-2023 09:10-0400 Heart rate 75 /min Dr. Lauren Paulino Work Phone: [facility] 02-19-2023 09:10-0400 Respiratory rate 16 /min Dr. Lauren Paulino Work Phone: [facility] 02-19-2023 09:10-0400 SaO2% (BldA) [Mass fraction] 96 % Dr. Lauren Paulino Work Phone: [facility] 02-19-2023 09:10-0400 Systolic blood pressure 118 mm[Hg] Dr. Lauren Paulino Work Phone: [facility] 02-19-2023 08:55-0400 Inhaled oxygen flow rate 2 L/min Dr. Lauren Paulino Work Phone: [facility] 02-19-2023 07:10-0400 Body height 165.[address] Lauren Paulino Work Phone: [facility] 02-19-2023 07:10-0400 Body mass index (BMI) [Ratio] 35.2 kg/m2 Dr. Laurne Paulino Work Phone: [facility] 02-19-2023 07:10-0400 Body weight [address] Lauren Paulino Work Phone: [facility] 01-25-2023 08:52-0400 Body height 165.[address] Lauren Paulino Work Phone: [facility] 01-25-2023 08:52-0400 Body mass index (BMI) [Ratio] 36.8 kg/m2 Dr. Lauren Paulino Work Phone: [facility] 01-25-2023 08:52-0400 Body temperature 97.9 [degF] Dr. Lauren Paulino Work Phone: [facility] 01-25-2023 08:52-0400 Body weight 100.[address] Lauren Paulino Work Phone: [facility] 01-25-2023 08:52-0400 Diastolic blood pressure 88 mm[Hg] Dr. Lauren Paulino Work Phone: [facility] 01-25-2023 08:52-0400 Heart rate 66 /min Dr. Lauren Paulino Work Phone: [facility] 01-25-2023 08:52-0400 Respiratory rate 16 /min Dr. Lauren Paulino Work Phone: [facility] 01-25-2023 08:52-0400 SaO2% (BldA) [Mass fraction] 97 % Dr. Lauren Paulino Work Phone: [facility] 01-25-2023 08:52-0400 Systolic blood pressure 158 mm[Hg] Dr. Lauren Paulino Work Phone: [facility] 01-06-2023 11:13-0400 Body mass index (BMI) [Ratio] 34.9 kg/m2 Dr. Lauren Paulino Work Phone: [facility] 01-06-2023 11:13-0400 Body weight 95.[address] Lauren Paulino Work Phone: [facility] 07-27-2022 08:18-0400 Body temperature 97.8 [degF] Dr. Lauren Paulino Work Phone: [facility] 07-27-2022 08:18-0400 Body weight 105.[address] Lauren Paulino Work Phone: [facility] 07-27-2022 08:18-0400 Diastolic blood pressure 78 mm[Hg] Dr. Lauren Paulino Work Phone: [facility] 07-27-2022 08:18-0400 Heart rate 70 /min Dr. Lauren Paulino Work Phone: [facility] 07-27-2022 08:18-0400 Respiratory rate 16 /min Dr. Lauren Paulino Work Phone: [facility] 07-27-2022 08:18-0400 SaO2% (BldA) [Mass fraction] 98 % Dr. Lauren Paulino Work Phone: [facility] 07-27-2022 08:18-0400 Systolic blood pressure 142 mm[Hg] Dr. Lauren Paulino Work Phone: [facility] 01-26-2022 09:24-0400 Body temperature 97.3 [degF] Dr. Lauren Paulino Work Phone: [facility] Work Phone: 01-26-2022 09:24-0400 Body weight 1010.[address] Lauren Paulino Work Phone: [facility] Work Phone: 01-26-2022 09:24-0400 Diastolic blood pressure 82 mm[Hg] Dr. Lauren Paulino Work Phone: [facility] Work Phone: 01-26-2022 09:24-0400 Heart rate 76 /min Dr. Lauren Paulino Work Phone: [facility] Work Phone: 01-26-2022 09:24-0400 Respiratory rate 16 /min Dr. Lauren Paulino Work Phone: [facility] Work Phone: 01-26-2022 09:24-0400 SaO2% (BldA) [Mass fraction] 96 % Dr. Lauren Paulino Work Phone: [facility] Work Phone: 01-26-2022 09:24-0400 Systolic blood pressure 149 mm[Hg] Dr. Lauren Paulino Work Phone: [facility] Work Phone: Encounters Encounter Date Encounter Type Care Provider Facility Start: 11-17-2024 End: 11-17-[address] Lauren Paulino MD Work Phone: -Laboratory Start: 11-17-2024 End: 11-17-[address] Lauren Paulino MD Work Phone: -Laboratory Work Phone: Start: 11-17-2024 End: 11-17-2024 ambulatory vanna PEGUERO Facility:[facility] Start: 08-21-2024 End: 08-21-[address] Lauren Paulino MD Work Phone: [facility] Work Phone: Start: 08-21-2024 End: 08-21-[address] Lauren Paulino MD Work Phone: -Laboratory Work Phone: Start: 08-21-2024 End: 08-21-2024 ambulatory billingsley MARIELENA Facility:[facility] Start: 06-26-2024 End: 06-26-[address] Lauren Paulino MD -[facility] Work Phone: Start: 06-26-2024 End: 06-26-[address] Lauren Paulino MD Work Phone: [facility] Work Phone: Start: 06-26-2024 End: 06-26-2024 ambulatory Lauren Paulino Facility:[facility] Start: 05-26-2024 End: 05-26-[address] Lauren Paulino MD Work Phone: -Laboratory Work Phone: Start: 05-26-2024 End: 05-26-2024 ambulatory billingsley MARIELENA Facility:[facility] Start: 03-30-2024 Encounter for genera l adult medical examination without abnormal findings Lauren Paulino [facility] Start: 03-06-2024 End: 03-06-[address] Lauren Paulino MD -Laboratory Work Phone: Start: 03-06-2024 End: 03-06-2024 ambulatory billingsley MARIELENA Facility:[facility] Start: 02-23-2024 End: 02-23-2024 ambulatory Lauren Paulino Facility:[facility] Start: 05-31-2023 End: 05-31-[address] Lauren Paulino Work Phone: [facility] Work Phone: Start: 05-31-2023 End: 05-31-[address] Lauren Paulino Work Phone: [facility] Work Phone: Start: 02-19-2023 Non-patient / Non-visit Dr. Lorraine Paulino Work Phone: [facility] Start: 02-19-2023 End: 02-19-2023 Admission to same day surgery center Dr. Lauren Paulino Work Phone: [facility] Work Phone: Start: 01-25-2023 End: 01-25-[address] Lauren Paulino Work Phone: [facility] Work Phone: Start: 01-25-2023 End: 01-25-[address] Lauren Paulino Work Phone: [facility] [place] Work Phone: Start: 01-06-2023 Non-patient / Non-visit Dr. Lorraine Paulino Work Phone: [facility] Work Phone: Start: 07-27-[address] Lauren Paulino Work Phone: [facility] Start: 07-27-2022 End: 07-27-2022 Encounter for general adult medical examination without abnormal findings Dr. Lauren Paulino Work Phone: [facility] Start: 07-27-2022 End: 07-27-[address] Lauren Paulino Work Phone: [facility] [place] Start: 07-21-2022 End: 07-21-[address] Lauren Paulino Work Phone: [facility] Work Phone: Start: 07-21-2022 End: 07-21-[address] Lauren Paulino Work Phone: [facility] Start: 01-26-2022 End: 01-26-[address] Lauren Paulino Work Phone: [facility] [place] Procedures Date Procedure Procedure Detail Performing Clinician Start: 11-17-2024 Assay of prostate sp ecific antigen total Dr. Lauren Paulino MD Work Phone: Comment on above: This test was perfor med using the [employer] tPSA method. Measured values of a patient sample can vary depending on the testing procedure used. PSA values determined on patient samples by different testing procedures cannot be used interchangeably. If there is a change in PSA assays while monitoring therapy, sequential testing should be performed to confirm baseline values. Start: 08-21-2024 Prostate specific an tigen measurement Dr. Lauren Paulino MD Work Phone: Comment on above: This test was perfor med using the [employer] tPSA method. Measured values of a patient sample can vary depending on the testing procedure used. PSA values determined on patient samples by different testing procedures cannot be used interchangeably. If there is a change in PSA assays while monitoring therapy, sequential testing should be performed to confirm baseline values. Start: 06-26-2024 X-ray of knee, four or more views Dr. Lauren Paulino MD Work Phone: Start: 05-26-2024 Assay of prostate sp ecific antigen total Dr. Lauren Paulino MD Work Phone: Comment on above: This test was perfor med using the TPSA assay method for the[employer] chemistry system. Values obtained with differentassay methods cannot be used interchangably.When changing PSA assays in the course of monitoring apatient, additional sequential testing should be carriedout to confirm baseline values. Plan of Treatment Date Care Activity Detail Author Start: 02-19-2023 Colonoscopy w/biopsy single/multiple COLONOSCOPY AND BIOPSY [facility] Start: 02-19-2023 Patient discharge [facility] [place] Start: 07-27-2022 Patient referral [facility] Work Phone: Colonoscopy [facility] [place] Patient referral [facility] Work Phone: Prostate specific antigen measurement [facility] Immunizations Immunization Date Immunization Notes Care Provider Alexis hernandez 01-25-2023 influenza, injectabl e, quadrivalent, preservative free Dr. Lauren Paulino Work Phone: [facility] Payers Date Payer Category Payer Medicare [id number] 2024 Unknown [id number] 2024 Self-pay [id number] Unknown [id number] 2012 Unknown [facility] [id number] Unknown [employer] [id number] Unknown [id number] 2.16.8 [id number] Unknown [id number] 2.16.8 [id number] Unknown [id number] 2.16.8 [id number] Unknown [id number] 2.16.8 [id number] Unknown [id number] 2.16.8 [id number] Unknown [id number] 2.16.8 [id number] Unknown [id number] 2.16.8 [id number] Social History Date Type Detail Facility Start: 01-26-2022 End: 02-15-2023 Tobacco smoking status NHIS Unknown if ever smoked [facility] Start: 1960 Sex Assigned At Male [facility] Start: 02-15-2023 Tobacco smoking stat us NHIS Never smoked tobacco (finding) [facility] Start: 07-04-2024 Sex Male (finding) [facility] Goals Date Patient Goal Desired Activity /State Mental Status Date Assessment Result Facility 02-19-2023 Cognitive function Level Of Consciousness Sedated [facility] Work Phone: Clinical Notes 09-02-2020 to 06-26-2024 Note Date & Type Note Facility 06-26-2024 Radiology Diagnostic study note [facility] Imaging Services [address] [place], [place] [address] Knee 4 or More Views MR#: [id number] Acct: [id number] Name: CHI MANZANO Rep #: [id number] : 1960 M 63 From: Carmelina Bolaños MD PCP: Dr. Lauren Paulino MD Status: REG CLI Study:Knee 4 or More Views Date of Exam: 06/26/24 Exam# [id number] Ordering Dr: Lauren Paulino MD PROCEDURE: KNEE 4 OR MORE VIEWS (RADKN), 06/26/2024 REASON FOR EXAM: Right knee pain TECHNIQUE: AP, lateral, AP tunnel, and sunrise views of the right knee were obtained. COMPARISON: None FINDINGS: Fracture/dislocation: None visible. Joint space(s): Relatively preserved. Soft tissues: Soft tissue calcifications along the distal aspect of the posteromedial thigh Foreign bodies: None visible. Bone mineralization: Unremarkable. RAD/Knee 4 or More Views IMPRESSION: 1. No visible acute abnormality or significant degenerative changes evident radiographically. 2. Additional description as above. Reading Location: [id number] CC: Dr. Lauren Paulino MD ~ Medical Superintendent: Signed [facility] 06-26-2024 Evaluation note Diagnosis Onset Date Resolution Right knee pain acute June 9:54am [facility] Work Phone: [phone] NoteHNO ID: [id number] Author: Simón Durand MD Service: ? Author Type: Physician Type: [...] 6am with friends. 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 Patient feels rested [...] Laterality Date - COLONOSCOP W/ OR W/O [facility] SPEC 02/14/07 - COLONOSCOP W/ OR W/O [facility] SPEC 02/21/2018 Colonoscopy - LAPAROSCOPY, SURGICAL, APPENDECTOMY [...] 74 Resp 14 Ht 167.6 cm (5' 6) Wt 98 kg (216 lb) BMI 34.86 [...] normal, canals clear. Neck (more content not included)...[facility]08-13-2021 NoteHNO ID: [id number] Author: Simón Durand MD Service: ? Author Type: Physician Type: [...] Laterality Date - COLONOSCOP W/ OR W/O [facility] SPEC 02/14/07 - COLONOSCOP W/ OR W/O [facility] SPEC 02/21/2018 Colonoscopy - LAPAROSCOPY, SURGICAL, APPENDECTOMY [...] 74 Resp 14 Ht 167.6 cm (5' 6) Wt 98 kg (216 lb) BMI 34.86 [...] Negative Negative Ketones, Urine Negative Negative Specific [place], Ur 1.005 - 1.030 1.026 Hemoglobin/Blood,Ur Negative Negative pH, Urine 5.0 - 8.0 5.0 Protein, Urine Negative Negative Urobilinogen Negative E.U./dL Negative Nitrites Negative Negative Leukest Negative Negative Comment SEE COMMENT Urine Luigi Comment SEE COMMENT WBC, Urine 0 - 5 /HPF 0- (more content not included)...[facility]05-17-2021 NoteHNO ID: [id number] Author: Simón Durand MD Service: ? Author Type: Physician Type: [...] Patient transferring care today due to the mcfp of his previous PCP. May use his omeprazole once every few months. Past medical history, appointments, medications, allergies reviewed. Previous Medical History PAST MEDICAL HISTORY Diagnosis Date - Diverticulitis of colon (without mention of hemorrhage)(562.11) - Essential hypertension, benign 03/01/2014 - Obesity, Class I, BMI 30-34.9 08/17/2017 Previous Surgical History PAST SURGICAL HISTORY Procedure Laterality Date - COLONOSCOP W/ OR W/O [facility] SPEC 02/14/07 - COLONOSCOP W/ OR W/O [facility] SPEC 02/21/2018 Colonoscopy - LAPAROSCOPY, SURGICAL, APPENDECTOMY [...] SCREENING due on 09/02/2021 (more content not included)...[facility] On[facility] Date Resolution Status Elevated serum creatinine ac [place] Hypertension [facility] Work Phone: Evaluation note* Diagnosis Onset Date Resolution Status Elevated PSA, less than 10 ng/ml acute Elevated serum creatinine [place] Encounter for wellness examination in adult acute Shoulder pain acute Hypertension [facility] Work Phone: Evaluation note* Diagnosis Onset Date Resolution Status Acute upper respiratory infection acute Elevated PSA, less than 10 ng/ml acute Osteoarthritis acute Hypertension chronic [facility] Work Phone: Evaluation note* Diagnosis Onset Date Resolution Status Family hx of colon cancer ac [place] [facility] Work Phone: Evaluation noteNo assessment information available [facility] Work Phone: Hospital Discharge instructionsAmbulatory Orders* General Surgery Location: None Selected [facility] Work Phone: Reason for referral (narrative)No reason for referral information [facility] Work Phone: Summary Purpose Family History No Family History Records Found Relationship Condition Age at Onset Recorded Date/T josias mother Malignant neoplasm of colon 69 Advance Directives No Advanced Directives Records Found Advance Directive Response Recorded Date/ Time Advance Directives Yes January 24, 2013 12:31pm Living Will Yes January 24 12:31pm Power of Wagon Person Yes January 24 12:31pm Advance Directive Response Recorded Date/ Time Advance Directives Yes January 24, 2013 1:31pm Living Will Yes January 24 3 1:31pm Power of Wagon Person Yes January 24 1:31pm Advance Directive Response Recorded Date/ Time Name of Medical Power of Wagon Person MARIBEL MICHELLELetty February 15, 2023 11:15am Advance Directives Yes January 24, 2013 12:31pm Living Will Yes February 15 11:15am Power of Wagon Person Yes February 15, 2023 11:15am Advance Directive Response Recorded Date/ Time Advance Directives Yes January 24, 2013 1:31pm Chief Complaint and Reason for Visit Chief Complaint Admit Date Rt Knee Pain June 26, 2024 9:5 4am E-ORDER June 26, 2024 10: 48am Reason for Visit Admit Date Right knee pain June 26, 2024 9:5 4am Chief Complaint fu E-ORDER Reason for Visit Elevated serum creat inine Hypertension Chief Complaint INT LABS 6 M FU Reason for Visit Elevated PSA, less t best 10 ng/ml Elevated serum creatinine Encounter for wellness examination in adult Shoulder pain Hypertension Chief Complaint Amb Documentation 6 M FU E ORDERS Reason for Visit Acute upper respirat ory infection Elevated PSA, less than 10 ng/ml Osteoarthritis Hypertension Chief Complaint PSA Reason for Visit Family hx of colon c ancer Chief Complaint Admit Date e orders/fax PSA results to dr Valderrama March 06, 2024 7:02am Rt Knee Pain June 26, 2024 9:5 4am E-ORDER June 26, 2024 10: 48am Additional Source Comments (unrecognized sect ion and content) No Status Records FoundNo Status Records Found INFORMATION SOURCE (unrecogn ized section and content) DATE CREATED AUTHOR 06/03/2021 [facility] DATE CREATED AUTHOR AUTHOR'S ORGANIZ ATION 12/10/2024 [facility] Goals (unrecognized section and content) Goals may be documented in a n alternate sectionGoals may be documented in an alternate sectionGoals may be documented in an alternate sectionGoals may be documented in an alternate sectionGoals may be documented in an alternate sectionGoals may be documented in an alternate section Care Teams (unrecognized sec tion and content) Team Status: Active Member Role Status Dates Dr. Tobi Rob III, MD Family Provider Active Dr. Lauren Paulino MD Primary Care Provider Active Team Status: Inactive Member Role Status Dates Dr. Lauren Paulino MD Primary Care Provider, Attendi ng Provider Active Team Status: Inactive Member Role Status Dates Dr. Lauren Paulino MD Primary Care Pro vider, Attending Provider, Referring Provider Active Team Status: Active Member Role Status Dates Dr. Lauren Paulino MD Primary Care Provider Active Jael Walter Attending Provider Active Team Status: Active Member Role Status Dates Dr. Lauren Paulino MD Primary Care Provider, Referri ng Provider Active Dr. Vanna Rob MD Attending Provider, Other Prov ider Active Team Status: Inactive Member Role Status Dates Dr. Lauren Paulino MD Primary Care Provider, Referri ng Provider Active Dr. Vanna Rob MD Attending Provider Active Team Status: Inactive Member Role Status Dates Dr. Lauren Paulino MD Primary Care Provider Active HAN RICARDO Attending Provider Active Team Status: Inactive Member Role Status Dates Dr. Lauren Paulino MD Primary Care Provider Active Start: March 06, 2024 End: March 06, 2024 Dr. Lauren Paulino MD Attending Provider Active Start: March 06, 2024 End: March 06, 2024 Dr. Lauren Paulino MD Referring Provider Active Start: March 06, 2024 End: March 06, 2024 ADIRHAN Other Provider Active Start: 2023 End: March 06, 2024 Team Status: Inactive Member Role Status Dates Dr. Lauren Paulino MD Primary Care Provider Active Start: May 26, 2024 End: May 26, 2024 ADIRHAN Attending Provider Active Start: 2024 End: May 26, 2024 ADIRCATALINOIN Referring Provider Active Start: 2024 End: May 26, 2024 Team Status: Inactive Member Role Status Dates Dr. Lauren Paulino MD Primary Care Provider Active Start: June 26, 2024 End: June 26, 2024 Dr. Lauren Paulino MD Attending Provider Active Start: June 26, 2024 End: June 26, 2024 Team Status: Inactive Member Role Status Dates Dr. Lauren Paulino MD Primary Care Provider Active Start: June 26, 2024 End: June 26, 2024 Dr. Lauren Paulino MD Attending Provider Active Start: June 26, 2024 End: June 26, 2024 Dr. Lauren Paulino MD Referring Provider Active Start: June 26, 2024 End: June 26, 2024 Team Status: Inactive Member Role Status Dates Dr. Lauren Paulino MD Primary Care Provider Active Start: August 21, 2024 End: August 21, 2024 ADIRHAN Attending Provider Active Start: 2024 End: August 21, 2024 ADIRHAN Referring Provider Active Start: 2024 End: August 21, 2024 Team Status: Active Member Role/Relationship Status Dates Dr. Tobi Rob III, MD Family Provider Active Dr. Lauren Paulino MD Primary Care Provider Active Team Status: Inactive Member Role/Relationship Status Dates Dr. Lauren Paulino MD Primary Care Provider Active Start: August 21, 2024 End: August 21, 2024 ADHAN AVILA Attending Provider Active Start: 2024 End: August 21, 2024 ADIRCATALINOIN Referring Provider Active Start: 2024 End: August 21, 2024 Team Status: Inactive Member Role/Relationship Status Dates YECENIA ROSS Attending Provider Active Sta rt: November 17, 2024 End: November 17, 2024 YECENIA ROSS Referring Provider Active Sta rt: November 17, 2024 End: November 17, 2024 Dr. Lauren Paulino MD Primary Care Provider Active Start: November 17, 2024 End: November 17, 2024 FOR RECORDS PERTAINING TO PATIENTS WHO ARE [...] BE BASED ON THE PRIMARY CLINICAL RECORDS. [facility] [employer] provides no warranty or guarantee of the accuracy or completeness of information in this document.
[2025-04-10 06:59] LABS: Hematocrit 45.7 % (40-54); Hemoglobin 15.2 g/dL (13.0-16.5); Immature Granulocytes Count 0.030 X10^3/uL (0.0-0.0); Mean Corp Hgb Conc 33.3 g/dL (32-36); Mean Corpuscular Volume 94.2 fL (80-94); Mean Platelet Vol. 9.9 fl (6.2-12.0); NRBC Flagged by Analyzer 0 % (0-5); Platelet Count 247 K/mm3 (150-450); RBC Distribution Width CV 12.7 % (11.6-14.6); RBC Distribution Width SD 43.8 fl (35.1-43.9); Red Blood Count 4.85 M/mm3 (4.6-6.2); White Blood Count 8.1 K/mm3 (4.4-11.0)
[2025-04-10 07:44] LABS: Cholesterol 200 mg/dL (<=200); Low Density Lipoprotein Calc. 127 mg/dL; Magnesium 2.2 mg/dL (1.5-2.2); Triglycerides 218 mg/dL; Very Low Density Lipoprotein 44 mg/dL (5-40); Vitamin B12 409 pg/mL (180-914); Vitamin D,25 Hydroxy 39.3 ng/mL (30-100); cholesterol:hdl ratio screen 5.78
[2025-04-10 07:46] LABS: AST(SGOT) 31 U/L (<=37); Alanine Aminotransfer ALT/SGPT 37 U/L (<=46); Albumin, Serum 4.5 g/dL (3.4-4.8); Alkaline Phosphatase 61 U/L (40-129); Anion Gap 10 (7-18); BUN 21 mg/dL (4-19); BUN/Creat Ratio 15.3 RATIO (10-20); Calcium,Total 9.5 mg/dL (7.6-11.0); Carbon Dioxide 25.4 mmol/L (20.0-29.0); Chloride 106 mmol/L (96-106); Globulin 2.8 g/dL (2.2-4.2); Glucose 126 mg/dL (70-99); Potassium 4.8 mmol/L (3.5-5.1)
== END | disposition home or self-care (01) ==
LOC: LAB 06:44
PROVIDERS: PCP Internal Medicine; Referring Provider Internal Medicine; Visit Provider Internal Medicine
DX: I10 Essential (primary) hypertension (principal); C61 Malignant neoplasm of prostate; M19.90 Unspecified osteoarthritis, unspecified site
CPT/HCPCS: 36415; 80053; 80061; 82306; 82607; 83036; 83735; 84443; 85025